=== PATIENT | male | born 1950 | race Caucasian/White ===

== ENCOUNTER 2020-11-21 08:31 | Outpatient (REF) | payer OTHER, SELFPAY ==
[2020-11-21 11:41] LABS: TSH reflex Free T4 3.73 uIU/mL (0.32-4.0)
[2020-11-21 11:43] LABS: Alanine Aminotransferase 10 U/L (0-40); Albumin Level 4.3 g/dL (3.5-5.0); Alkaline Phosphatase 50 U/L (39-117); Anion Gap 12 (12-20); Aspartate Amino Transferase 14 U/L (5-37); Bilirubin Total 1.3 mg/dL (0.0-1.0); Blood Urea Nitrogen 11 mg/dL (9-16); Calcium 9.1 mg/dL (8.4-10.2); Carbon Dioxide 26 mmol/L (22-29); Chloride 105 mmol/L (96-108); Cholesterol 225 mg/dL; Estimated Glomerular Filt Rate > 60; Glucose Fasting 88 mg/dL (60-99); HDL Cholesterol 61 mg/dL; LDL Cholesterol Calculated 146 mg/dl; Potassium 3.9 mmol/L (3.3-5.1); Sodium 139 mmol/L (135-145); Total Protein 6.9 g/dL (6.5-8.0); Triglycerides 90 mg/dL
== END 2020-11-21 08:32 | disposition home or self-care (01) ==
LOC: HO.WFDLDS 08:31
PROVIDERS: Visit Provider Family Medicine
DX: Z00.00 Encounter for general adult medical examination without abnormal findings (principal)
CPT/HCPCS: 36415; 80053; 80061; 84443

== ENCOUNTER 2020-12-21 09:21 | Outpatient (REF) | payer OTHER, SELFPAY ==
[2020-12-21 11:20] LABS: Prostate Specific Antigen Scr 3.33 ng/mL (<0.05-4.0)
== END 2020-12-21 09:22 | disposition home or self-care (01) ==
LOC: HO.WFDLDS 09:21
PROVIDERS: Visit Provider Family Medicine
DX: Z12.5 Encounter for screening for malignant neoplasm of prostate (principal)
CPT/HCPCS: 36415; 84153

== ENCOUNTER 2021-06-27 09:48 | Outpatient (REF) | payer MEDICARE, SELFPAY ==
[2021-06-27 11:16] LABS: MANUAL DIFF FLAG NO
[2021-06-27 11:35] LABS: Appearance Urine CLEAR; Color Urine YELLOW; D Dimer High Sensitivity 866 NG/ML; Glucose Urine UA NEG (NEG); Leukocyte Esterase Urine NEG (NEG); Nitrite Urine NEG (NEG); Specific Gravity - Urine 1.015 (1.005-1.025); Urine Blood NEG (NEG); Urine Ketones NEG (NEG); Urine Protein NEG (NEG-TRACE)
[2021-06-27 12:01] LABS: Basophils Percent Auto 0.8 % (0-2); Eosinophils Absolute Auto 0.1 X10*3/uL (0.0-0.4); Eosinophils Percent Auto 1.4 % (0-4); Hematocrit 38.4 % (42.0-52.0); Hemoglobin 12.4 g/dl (14.0-18.0); Imm Gran Abs Auto 0.01 X10*3/uL (0.00-0.03); Imm Gran Pct Auto 0.2 % (0.0-0.4); Lymphocytes Percent Auto 20.5 % (20-40); Mean Corpuscular HGB Conc 32.3 g/dl (31.0-36.0); Mean Corpuscular Hemoglobin 30.1 pg (27.0-33.0); Mean Corpuscular Volume 93.2 fL (80.0-98.0); Monocytes Absolute Auto 0.4 X10*3/uL (0.1-1.2); Monocytes Percent Auto 8.2 % (2-11); Neutrophils Absolute Auto 3.4 x10*3/uL (2.0-8.3); Neutrophils Percent Auto 68.9 % (45-73); Platelet Count 259 X10*3/uL (160-400); Red Blood Count 4.12 X10*6/uL (4.60-5.80); Red Cell Distribution Width 13.6 % (11.0-16.0)
[2021-06-27 12:04] LABS: Alanine Aminotransferase 13 U/L (0-40); Alkaline Phosphatase 64 U/L (39-117); Anion Gap 11 (12-20); Aspartate Amino Transferase 16 U/L (5-37); Blood Urea Nitrogen 14 mg/dL (9-16); Calcium 8.9 mg/dL (8.4-10.2); Carbon Dioxide 25 mmol/L (22-29); Chloride 104 mmol/L (96-108); Estimated Glomerular Filt Rate > 60; Glucose Random 82 mg/dL (60-115); Potassium 4.4 mmol/L (3.3-5.1); Sodium 136 mmol/L (135-145); Total Protein 7.1 g/dL (6.5-8.0)
[2021-06-27 12:27] LABS: Folate 3.6 ng/mL (> or = 4.0); Vitamin B12 246 pg/mL (200-900)
[2021-06-27 12:40] LABS: Erythrocyte Sedimentation Rate 39 MM/HR (0-15)
== END 2021-06-27 09:49 | disposition home or self-care (01) ==
LOC: HO.WFDLDS 09:48
PROVIDERS: Visit Provider Family Medicine
DX: Z00.00 Encounter for general adult medical examination without abnormal findings (principal); M21.372 Foot drop, left foot; R20.2 Paresthesia of skin; E53.8 Deficiency of other specified B group vitamins; M79.662 Pain in left lower leg; R29.898 Other symptoms and signs involving the musculoskeletal system
CPT/HCPCS: 36415; 80053; 81003; 82607; 82746; 85025; 85379; 85652

== ENCOUNTER 2021-07-04 14:13 | Outpatient (REF) | payer MEDICARE, SELFPAY ==
--- NOTE | ~2021-07-04 | XR_ITS ---
EXAMINATION: XR FOOT, LEFT CLINICAL INFORMATION: Localized pain and swelling COMPARISON: None TECHNIQUE: AP, lateral, and oblique views of the left foot. FINDINGS: There are degenerative osteoarthritic changes involving primarily the first metatarsophalangeal joint. No bone erosions. Bone alignments remain satisfactory. There is a small posterior calcaneal spurs. 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
--- NOTE | ~2021-07-04 | US_ITS ---
EXAMINATION: US VENOUS ULTRASOUND WITH DOPPLER LOWER EXTREMITY, LEFT CLINICAL INFORMATION: Pain left lower leg COMPARISON: None TECHNIQUE: Ultrasound of the deep veins is performed from the hip to the calf with compression sonography and color and pulse Doppler assessment. Spectral analysis with color-flow imaging is performed. FINDINGS: There is normal venous compression and respiratory variation and augmented flow. The visualized common femoral vein, superficial femoral vein, profunda femoral vein, popliteal vein, and the trifurcation region shows no evidence of deep venous thrombosis. There is no significant popliteal fossa cyst. If the patient's symptoms persist, followup ultrasound in 5 days 7 days might be of value to exclude proximal propagation from a non-visualized calf vein. US/US venous duplex LE LT IMPRESSION: No DVT demonstrated in the left lower extremity.
== END 2021-07-04 14:14 | disposition home or self-care (01) ==
LOC: HO.US 14:13
PROVIDERS: PCP Family Medicine; Visit Provider Family Medicine
DX: M79.662 Pain in left lower leg (principal); R79.89 Other specified abnormal findings of blood chemistry; R22.42 Localized swelling, mass and lump, left lower limb
CPT/HCPCS: 73620; 93971

== ENCOUNTER 2021-12-25 08:35 | Outpatient (REF) | payer MEDICARE, SELFPAY ==
[2021-12-25 11:19] LABS: Basophils Percent Auto 0.6 % (0-2); Eosinophils Absolute Auto 0.1 X10*3/uL (0.0-0.4); Eosinophils Percent Auto 1.1 % (0-4); Hematocrit 38.1 % (42.0-52.0); Hemoglobin 12.4 g/dl (14.0-18.0); Imm Gran Abs Auto 0.02 X10*3/uL (0.00-0.03); Imm Gran Pct Auto 0.4 % (0.0-0.4); Lymphocytes Absolute Auto 1.2 X10*3/uL (1.2-4.9); Lymphocytes Percent Auto 24.8 % (20-40); MANUAL DIFF FLAG NO; Mean Corpuscular HGB Conc 32.5 g/dl (31.0-36.0); Mean Corpuscular Hemoglobin 30.2 pg (27.0-33.0); Mean Corpuscular Volume 92.9 fL (80.0-98.0); Mean Platelet Volume 9.4 fL (9.4-12.4); Monocytes Absolute Auto 0.3 X10*3/uL (0.1-1.2); Monocytes Percent Auto 6.4 % (2-11); Neutrophils Absolute Auto 3.1 x10*3/uL (2.0-8.3); Neutrophils Percent Auto 66.7 % (45-73); Platelet Count 238 X10*3/uL (160-400); Red Cell Distribution Width 13.8 % (11.0-16.0); White Blood Count 4.7 X10*3/uL (4.8-10.8)
[2021-12-25 11:37] LABS: Alanine Aminotransferase 12 U/L (0-40); Albumin Level 4.4 g/dL (3.5-5.0); Alkaline Phosphatase 49 U/L (39-117); Anion Gap 15 (12-20); Aspartate Amino Transferase 16 U/L (5-37); Bilirubin Total 1.6 mg/dL (0.0-1.0); Blood Urea Nitrogen 13 mg/dL (9-16); Calcium 9.1 mg/dL (8.4-10.2); Carbon Dioxide 25 mmol/L (22-29); Chloride 101 mmol/L (96-108); Cholesterol 235 mg/dL; Estimated Glomerular Filt Rate > 60; Glucose Fasting 88 mg/dL (60-99); HDL Cholesterol 75 mg/dL; LDL Cholesterol Calculated 145 mg/dl; Potassium 4.3 mmol/L (3.3-5.1); Sodium 137 mmol/L (135-145); Total Protein 6.9 g/dL (6.5-8.0); Triglycerides 79 mg/dL
[2021-12-25 12:03] LABS: TSH reflex Free T4 2.04 uIU/mL (0.32-4.0)
[2021-12-25 12:32] LABS: Folate 5.3 ng/mL (> or = 4.0); Vitamin B12 268 pg/mL (200-900)
[2021-12-25 12:37] LABS: Prostate Specific Antigen Scr 4.44 ng/mL (<0.05-4.0)
== END 2021-12-25 08:36 | disposition home or self-care (01) ==
LOC: HO.WFDLDS 08:35
PROVIDERS: Visit Provider Family Medicine
DX: Z00.00 Encounter for general adult medical examination without abnormal findings (principal); Z12.5 Encounter for screening for malignant neoplasm of prostate; E53.8 Deficiency of other specified B group vitamins
CPT/HCPCS: 36415; 80053; 80061; 82607; 82746; 84153; 84443; 85025

== ENCOUNTER 2022-01-10 10:02 | Outpatient (REF) | payer MEDICARE, SELFPAY ==
--- NOTE | ~2022-01-10 | US_ITS ---
EXAMINATION: US EXTRACRANIAL CAROTID DUPLEX, BILATERAL CLINICAL INFORMATION: Bruit COMPARISON: None TECHNIQUE: Real-time ultrasound and Doppler techniques (integrating B-mode 2-D vascular images, Doppler spectral analysis and color-flow Doppler imaging) were utilized to interrogate the extracranial carotid arteries, the vertebral arteries and proximal subclavian arteries bilaterally. The degree of stenosis is determined by criteria similar to NASCET. FINDINGS: Right Side: 1. There is mild atherosclerotic plaque seen in the bifurcation/proximal ICA region. 2. The common carotid artery PSV proximally is 94 cm/s and distally 99 cm/s. 3. The proximal internal carotid artery velocities are 63 cm/s systolic and 15 cm/s diastolic. 4. The proximal external carotid artery PSV is 99 cm/s. 5. The vertebral artery shows antegrade flow. 6. The subclavian artery waveforms are normal. Left Side: 1. There is mild atherosclerotic plaque seen in the bifurcation/proximal ICA region. 2. The common carotid artery PSV proximally is 103 cm/s and distally 99 cm/s. 3. The proximal internal carotid artery velocities are 63 cm/s systolic and 24 cm/s diastolic. 4. The proximal external carotid artery PSV is 105 cm/s. 5. The vertebral artery shows antegrade flow. 6. The subclavian artery waveforms are normal. US/US carotid duplex BI IMPRESSION: 1. RIGHT: Minimal, non-hemodynamically significant stenosis of the proximal right internal carotid artery corresponding to a 0-49% stenosis by velocity criteria. 2. LEFT: Minimal, non-hemodynamically significant stenosis of the proximal left internal carotid artery corresponding to a 0-49% stenosis by velocity criteria.
== END 2022-01-10 10:03 | disposition home or self-care (01) ==
LOC: HO.HMGCX 10:02
PROVIDERS: PCP Family Medicine; Visit Provider Family Medicine
DX: R09.89 Other specified symptoms and signs involving the circulatory and respiratory systems (principal)
CPT/HCPCS: 93880

== ENCOUNTER → 2022-03-14 13:29 | Outpatient (BNV) | payer MEDICARE, SELFPAY | PROVIDERS: PCP Family Medicine; Referring Provider Family Medicine; Visit Provider Internal Medicine | DX: D64.9 Anemia, unspecified (principal) | CPT/HCPCS: 99203; 99213 ==

== ENCOUNTER 2022-05-22 07:51 | Outpatient (REF) | payer MEDICARE, SELFPAY ==
[2022-05-22 12:18] LABS: Cholesterol 240 mg/dL; HDL Cholesterol 68 mg/dL; LDL Cholesterol Calculated 156 mg/dl; Triglycerides 81 mg/dL
== END 2022-05-22 07:52 | disposition home or self-care (01) ==
LOC: HO.WFDLDS 07:51
PROVIDERS: Visit Provider Family Medicine
DX: Z00.00 Encounter for general adult medical examination without abnormal findings (principal); E78.00 Pure hypercholesterolemia, unspecified
CPT/HCPCS: 36415; 80061

== ENCOUNTER → 2022-05-29 08:41 | Outpatient (BNVA) | payer MEDICARE, SELFPAY | PROVIDERS: PCP Family Medicine; Visit Provider Nurse Practitioner Family | DX: N40.0 Benign prostatic hyperplasia without lower urinary tract symptoms (principal); R97.20 Elevated prostate specific antigen [PSA] | CPT/HCPCS: 99202 ==

== ENCOUNTER 2022-06-09 08:01 | Outpatient (REF) | payer MEDICARE, SELFPAY ==
[2022-06-09 12:55] LABS: PSA,Total (Free>4and<10) 4.59 ng/mL (0.00-4.00)
[2022-06-12 11:54] LABS: Percent Free Prostate Spec Ag 19 % (calc) (>25); Prostate Specific Ag Total 5.2 ng/mL (< OR = 4.0)
== END 2022-06-09 08:02 | disposition home or self-care (01) ==
LOC: HO.WFDLDS 08:01
PROVIDERS: Visit Provider Nurse Practitioner Family
DX: Z12.5 Encounter for screening for malignant neoplasm of prostate (principal); N40.0 Benign prostatic hyperplasia without lower urinary tract symptoms; R97.20 Elevated prostate specific antigen [PSA]
CPT/HCPCS: 36415; 84153; 84154

== ENCOUNTER 2022-06-30 14:09 | Outpatient (REF) | payer MEDICARE, SELFPAY ==
--- NOTE | ~2022-06-30 | US_ITS ---
EXAMINATION: US RETROPERITONEAL COMPLETE (RENAL) CLINICAL INFORMATION: Benign prostatic hyperplasia without lower urinary tract symptoms. COMPARISON: None available. TECHNIQUE: Real-time imaging of the kidneys and bladder. FINDINGS: RIGHT KIDNEY: 11.7 x 4.9 x 6.3 cm (SAG x AP x TRV). The kidney is normal in size, contour, and echogenicity. Renal cortical thickness is normal. No calculi or focal parenchymal lesions. No hydronephrosis. LEFT KIDNEY: 10.6 x 5.5 x 6.2 cm (SAG x AP x TRV). The kidney is normal in size, contour, and echogenicity. Renal cortical thickness is normal. No calculi or focal parenchymal lesions. No hydronephrosis. BLADDER: Well distended and normal. Bilateral ureteral jets are demonstrated. Prevoid bladder volume is 447 mL. Postvoid bladder volume is 113 mL. No bladder wall thickening seen. ADDITIONAL FINDINGS: Prostate volume measures 67 mL. US/US retroperitoneal comp IMPRESSION: 1. Unremarkable renal ultrasound. 2. Moderate postvoid residual bladder volume. Normal bilateral ureteral jets seen. 3. Moderate prostate enlargement.
== END 2022-06-30 14:10 | disposition home or self-care (01) ==
LOC: HO.HMGCX 14:09
PROVIDERS: PCP Family Medicine; Visit Provider Nurse Practitioner Family
DX: N40.0 Benign prostatic hyperplasia without lower urinary tract symptoms (principal); R97.20 Elevated prostate specific antigen [PSA]
CPT/HCPCS: 76770

== ENCOUNTER → 2022-07-02 09:36 | Outpatient (BNVA) | payer MEDICARE, SELFPAY | PROVIDERS: PCP Family Medicine; Visit Provider Nurse Practitioner Family | DX: R97.20 Elevated prostate specific antigen [PSA] (principal) | CPT/HCPCS: 51798; 99212 ==

== ENCOUNTER 2022-08-25 08:09 | Outpatient (REF) | payer MEDICARE, SELFPAY ==
[2022-08-25 11:17] LABS: MANUAL DIFF FLAG NO
[2022-08-25 11:29] LABS: Basophils Percent Auto 0.6 % (0-2); Eosinophils Absolute Auto 0.1 X10*3/uL (0.0-0.4); Eosinophils Percent Auto 2.1 % (0-4); Hematocrit 40.3 % (42.0-52.0); Hemoglobin 13.3 g/dl (14.0-18.0); Imm Gran Abs Auto 0.02 X10*3/uL (0.00-0.03); Imm Gran Pct Auto 0.4 % (0.0-0.4); Lymphocytes Absolute Auto 1.2 X10*3/uL (1.2-4.9); Lymphocytes Percent Auto 24.7 % (20-40); Mean Corpuscular Hemoglobin 30.6 pg (27.0-33.0); Mean Corpuscular Volume 92.9 fL (80.0-98.0); Mean Platelet Volume 9.3 fL (9.4-12.4); Monocytes Absolute Auto 0.3 X10*3/uL (0.1-1.2); Monocytes Percent Auto 6.7 % (2-11); Neutrophils Absolute Auto 3.1 x10*3/uL (2.0-8.3); Neutrophils Percent Auto 65.5 % (45-73); Platelet Count 217 X10*3/uL (160-400); Red Blood Count 4.34 X10*6/uL (4.60-5.80); Red Cell Distribution Width 12.8 % (11.0-16.0); White Blood Count 4.8 X10*3/uL (4.8-10.8)
[2022-08-25 12:08] LABS: Alanine Aminotransferase 17 U/L (0-40); Albumin Level 4.2 g/dL (3.5-5.0); Alkaline Phosphatase 60 U/L (39-117); Anion Gap 10 (12-20); Aspartate Amino Transferase 17 U/L (5-37); Blood Urea Nitrogen 14 mg/dL (9-16); Calcium 8.9 mg/dL (8.4-10.2); Carbon Dioxide 28 mmol/L (22-29); Chloride 108 mmol/L (96-108); Cholesterol 170 mg/dL; Estimated Glomerular Filt Rate > 60; Glucose Fasting 93 mg/dL (60-99); HDL Cholesterol 64 mg/dL; LDL Cholesterol Calculated 90 mg/dl; Potassium 4.1 mmol/L (3.3-5.1); Sodium 142 mmol/L (135-145); Total Protein 6.9 g/dL (6.5-8.0); Triglycerides 81 mg/dL
== END 2022-08-25 08:10 | disposition home or self-care (01) ==
LOC: HO.WFDLDS 08:09
PROVIDERS: Visit Provider Family Medicine
DX: Z00.00 Encounter for general adult medical examination without abnormal findings (principal); E78.00 Pure hypercholesterolemia, unspecified; D64.9 Anemia, unspecified
CPT/HCPCS: 36415; 80053; 80061; 85025

== ENCOUNTER 2023-02-26 07:15 | Outpatient (REF) | payer MEDICARE, SELFPAY ==
[2023-02-26 11:16] LABS: MANUAL DIFF FLAG NO
[2023-02-26 11:37] LABS: Basophils Percent Auto 0.6 % (0-2); Eosinophils Absolute Auto 0.1 X10*3/uL (0.0-0.4); Eosinophils Percent Auto 2.1 % (0-4); Imm Gran Abs Auto 0.01 X10*3/uL (0.00-0.03); Imm Gran Pct Auto 0.2 % (0.0-0.4); Lymphocytes Absolute Auto 1.3 X10*3/uL (1.2-4.9); Lymphocytes Percent Auto 27.2 % (20-40); Mean Corpuscular HGB Conc 33.3 g/dl (31.0-36.0); Mean Corpuscular Hemoglobin 30.5 pg (27.0-33.0); Mean Corpuscular Volume 91.5 fL (80.0-98.0); Mean Platelet Volume 9.5 fL (9.4-12.4); Monocytes Absolute Auto 0.4 X10*3/uL (0.1-1.2); Monocytes Percent Auto 7.3 % (2-11); Neutrophils Percent Auto 62.6 % (45-73); Platelet Count 204 X10*3/uL (160-400); Red Blood Count 4.26 X10*6/uL (4.60-5.80); Red Cell Distribution Width 13.2 % (11.0-16.0); White Blood Count 4.8 X10*3/uL (4.8-10.8)
[2023-02-26 12:32] LABS: Alanine Aminotransferase 15 U/L (0-40); Albumin Level 4.3 g/dL (3.5-5.0); Alkaline Phosphatase 51 U/L (39-117); Anion Gap 10 (12-20); Aspartate Amino Transferase 16 U/L (5-37); Bilirubin Total 1.7 mg/dL (0.0-1.0); Blood Urea Nitrogen 16 mg/dL (9-16); Calcium 8.9 mg/dL (8.4-10.2); Carbon Dioxide 28 mmol/L (22-29); Chloride 106 mmol/L (96-108); Cholesterol 170 mg/dL (<200); Estimated Glomerular Filt Rate > 60; Glucose Fasting 87 mg/dL (60-99); HDL Cholesterol 74 mg/dL (>40); Iron 115 mcg/dL (45-160); LDL Cholesterol Calculated 82 mg/dL (<100); Percent Iron Saturation 44 % (15-50); Potassium 3.8 mmol/L (3.3-5.1); Sodium 140 mmol/L (135-145); TSH reflex Free T4 4.62 uIU/mL (0.32-4.0); Total Iron Binding Capacity 264 mcg/dL (228-428); Total Protein 7.1 g/dL (6.5-8.0); Triglycerides 70 mg/dL (<150); Unsaturated Iron Binding 149 ug/dL
[2023-02-26 12:38] LABS: Folate 5.6 ng/mL (> or = 4.0); Prostate Specific Antigen Scr 3.57 ng/mL (<0.05-4.0); Vitamin B12 665 pg/mL (200-900)
[2023-02-26 13:07] LABS: Free T4 (Free Thyroxine) 0.86 ng/dL (0.71-1.85)
== END 2023-02-26 07:16 | disposition home or self-care (01) ==
LOC: HO.WFDLDS 07:15
PROVIDERS: Visit Provider Family Medicine
DX: Z00.00 Encounter for general adult medical examination without abnormal findings (principal); E53.8 Deficiency of other specified B group vitamins; D64.9 Anemia, unspecified; Z12.5 Encounter for screening for malignant neoplasm of prostate
CPT/HCPCS: 36415; 80053; 80061; 82607; 82746; 83540; 84153; 84439; 84443; 85025

== ENCOUNTER 2023-02-27 08:32 | Outpatient (REF) | payer MEDICARE, SELFPAY ==
[2023-02-27 12:14] LABS: Appearance Urine Clear; Color Urine Yellow; Glucose Urine UA Negative (Negative); Leukocyte Esterase Urine Negative (Negative); Nitrite Urine Negative (Negative); PH 6.5 (5.0-9.0); Urine Blood Negative (Negative); Urine Ketones Negative (Negative); Urine Protein Negative (Neg-Trace)
[2023-02-27 12:53] LABS: Creatinine Urine 115.35 mg/dL; Microalbum/Creatinine Ratio Ur 4.3 ug/mg cr (<30)
== END 2023-02-27 08:33 | disposition home or self-care (01) ==
LOC: HO.WFDLNP 08:32
PROVIDERS: Visit Provider Family Medicine
DX: Z00.00 Encounter for general adult medical examination without abnormal findings (principal); I10 Essential (primary) hypertension
CPT/HCPCS: 81003; 82043; 82570

== ENCOUNTER 2023-03-03 15:53 | Outpatient (AMB) | payer MEDICARE, SELFPAY ==
--- NOTE | 2023-03-03 16:14 | A.OFFPC_ITS ---
Vital Signs 03/03/23 16:16 Height 5 ft 9 in Weight 171 lb BMI 25.2 BP 134/74 Blood Pressure Location Lt brachial Position Sitting Pulse 68 Pulse Source Pulse Oximeter Pulse Oximetry (%) 95 Oxygen Delivery Method Room Air Intake Visit Reasons: Extended exam with f/u labs and health maintenance Intake Note: Patient is here for extended exam with follow up on labs, and health maintenance. Allergies Influenza Virus Vaccines Adverse Reaction (Severe, Verified 03/03/23 16:17) serious flu over a week Uncooked dairy products Allergy (Severe, Uncoded 03/03/23 16:17) esophagus swollen, stop breathing Tobacco use date assessed: 03/03/23 Fall risk assessment: No Falls in past year Last assessed Fall Risk: 03/03/23 Dental Screening Dental Screen Date: 03/03/23 Did you have a dental visit in the last 12 months?: Yes Did you have a dental problem in the last 6 months where you did not have access to dental care?: No Was dental information given to patient?: Patient declined HPI Extended exam with f/u labs and health maintenance HPI Details 72 y/o male presents for an extended exa m with f/u labs and health maintenance. Labs were drawn 02/26/23. Reviewed labs with pt. Ongoing mild anemia. Triglycerides 70. TC 170. LDL 82. HDL 74. He is on artovastatin 20mg. TSH elevated at 4.62 uIU/mL. Pt reports leg cramps x2 weeks. [facility] Medical History History of cataract Surgical History History of colonoscopy History of tonsillectomy History of hernia surgery Family History Father Esophageal cancer Brother Colon cancer Small cell lung cancer Brother Colon cancer Paternal Grandmother Leukemia Maternal Grandmother Cervical cancer Son Testicular cancer Social History Household Members: Spouse Housing: House Are you a primary occasional caregiver to a significant other at home: No Do you presently have visiting nurse or other home services: No Alcohol intake: never Patient Tobacco Use Status: Never used Tobacco e-Cigarette/Vaping Use: Never Used Second Hand Smoke Exposure: No service: Yes Current occupational status: retired Current occupational exposures/hazards: No Cognitive needs: No Hearing needs: No Vision needs: Yes (glasses) Questionnaire Thrive Questionnaire Date Thrive assessed: 03/05/22 ADEN-7 AMB Questionnaire ADEN-7 Date ADEN - 7 assessed: 09/04/21 Source: Developed by Drs. Gustavo Nieves, Ronda Bolanos, Niels Gomez and colleagues, with an educational tigre from [employer]. Review of Systems Const Denies chills, Denies fatigue, Denies fever(s), Denies headache(s) and Denies weakness Eyes Denies change in vision ENT Denies dizziness, Denies headache(s), Denies hearing loss, Denies nasal congestion, Denies sinus pain, Denies sinus pressure and Denies sore throat Card Denies chest pain, Denies lightheadedness, Denies dyspnea and Denies other (palpitations) Resp Denies cough, Denies dyspnea and Denies wheezing GI Denies abdominal pain, Denies melena, Denies hematochezia, Denies change in bowel habits, Denies dyspepsia and Denies nausea Denies hematuria and Denies dysuria Musc Denies abnormal gait, Denies myalgias, Denies arthralgias, Denies numbness and Denies tingling Skin/Breast Denies rash, Denies unusual bruising and Denies wounds Neuro Denies abnormal gait, Denies dizziness, Denies headache(s), Denies memory loss, Denies numbness, Denies Sensory deficit (Neuro), Denies tingling and Denies weakness Psych Denies anxiety, Denies depression and Denies memory loss Endo Denies cold intolerance, Denies fatigue, Denies heat intolerance, Denies polydipsia and Denies polyuria Aram/Lymph Denies easy bleeding and Denies easy bruising Aller/Immun Denies wheezing Physical exam (Primary Care) Vital Signs: Last Vital Signs Pulse 68 03/03/23 16:16 BP 134/74 03/03/23 16:16 Pulse Ox 95 03/03/23 16:16 Oxygen Delivery Method Room Air 03/03/23 16:16 BMI result Body Mass Index 25.2 Tobacco/Smoking Status: Tobacco use Status Tobacco use date assessed 03/03/23 03/03/23 16:24 Patient Tobacco Use Status Never used Tobacco 03/03/23 16:24 e-Cigarette/Vaping Use Never Used 03/03/23 16:24 Thrive Assessment: Date of Thrive Assessment Date Thrive assessed 03/05/22 03/03/23 16:24 Const General: no acute distress, well developed, alert and awake Nutritional Appearance: well nourished Orientation/consciousness: patient oriented x3 HENMT Head: Yes normocephalic and Yes atraumatic Ears: hearing grossly normal bilaterally and TM's normal bilaterally General nose exam: Normal external nose present and Normal nares present Mouth: Normal oral and palatal mucosa present and moist mucous membranes Teeth and gingiva: dentition normal Throat: Yes posterior oropharynx normal Eyes General: appearance normal, both eyes and all related structures Pupils: Equal, round and reactive pupils present and Pupil accommodation reflex normal EOM: EOMs intact bilaterally Neck Neck: Yes normal visual inspection, Yes no lymphadenopathy and Yes trachea midline Thyroid: Thyroid normal Carotids: no bruits Lymphatic: no lymphadenopathy noted Chest Chest palpation & inspection: normal inspection of the chest Resp Effort & Inspection: normal respiratory effort Auscultation: clear to auscultation bilaterally Cardio Rate: regular rate Rhythm: regular rhythm Heart sounds: S1 normal heart sound present, S2 normal heart sound present, no gallops, no murmurs and no rubs Bruits: no abdominal aortic bruits and no carotid bruits GI Palpation (GI): No Abdominal aortic bruit present, Soft to palpation, nontender, No hepatosplenomegaly present and No Rebound tenderness present Auscultation: normal bowel sounds General: Yes no CVA tenderness Back/Spine/Pelvis Back: no CVA tenderness Cervical Spine: cervical ROM normal and No Cervical spine tenderness Thoracic/Lumbar Spine: thoraco-lumbar ROM normal, No pain with thoraco-lumbar ROM, No thoracic spinal tenderness and No lumbar spinal tenderness Skin Lesions: no lesions Rashes: no rashes Trauma: no lacerations or abrasions Wounds: no wounds Nails: normal Neuro General: patient oriented x3 Cranial nerves: Yes Equal, round and reactive pupils present Cognition (Neuro): normal cognition Gait exam (Neuro): Normal gait present Motor exam (neuro): 5/5 motor strength present throughout Sensory Exam: No Sensory deficit (Neuro) Deep tendon reflexes (DTR's): Right patellar reflex intensity grade: 2+ and Left patellar reflex intensity grade: 2+ Extrem General: Yes normal to inspection and No edema Psych Appearance: grossly normal Affect: normal affect Attitude: cooperative Thought process: Normal thought process present Assessment and Plan Assessment & Plan (1) Hypercholesterolemia: Code(s): E78.00 - Pure hypercholesterolemia, unspecified Plan: LDL?cholesterol?slightly?above?goal Continue?atorvastatin Will?follow-up?in?about?4?months (2) History of aortic aneurysm: Code(s): Z86.79 - Personal history of other diseases of the circulatory system Plan: Stable Follow-up?with?Cardiology?as?recommended (3) Mild anemia: Code(s): D64.9 - Anemia, unspecified Plan: Mild?stable?anemia?and?B12?deficiency.??He?is?now?on?B12?and?his?B12?level?is?go od (4) Screening for prostate cancer: Code(s): Z12.5 - Encounter for screening for malignant neoplasm of prostate Plan: Followed?by?urology (5) Screening for colon cancer: Code(s): Z12.11 - Encounter for screening for malignant neoplasm of colon Plan: Due?for?colonoscopy?in?2023?with??lui -referred (6) Leg cramps: Code(s): R25.2 - Cramp and spasm Plan: Advised?good?hydration?and?stretching (7) Elevated TSH: Code(s): R79.89 - Other specified abnormal findings of blood chemistry Plan: Mild?elevation?in?TSH.??Will?repeat?in?about?6?weeks (8) Adult general medical exam: Code(s): Z00.00 - Encounter for general adult medical examination without abnormal findings Plan: 72-year-old?male?presents?for?extended?exam. Coding Level of Care Code Est Pt Level 4 (52527) Diagnoses Hypercholesterolemia E78.00 History of aortic aneurysm Z86.79 Mild anemia D64.9 Screening for prostate cancer Z12.5 Screening for colon cancer Z12.11 Leg cramps R25.2 Elevated TSH R79.89 Adult general medical exam Z00.00
[2023-03-03 16:16] VITALS: BP 134/74; PULSE 68; O2SAT 95; BMI 25.2
== END 2023-03-03 17:05 | disposition home or self-care (01) ==
PROVIDERS: PCP Family Medicine; Visit Provider Family Medicine
DX: Z00.00 Encounter for general adult medical examination without abnormal findings (principal); E78.00 Pure hypercholesterolemia, unspecified; Z86.79 Personal history of other diseases of the circulatory system; D64.9 Anemia, unspecified; Z12.5 Encounter for screening for malignant neoplasm of prostate; Z12.11 Encounter for screening for malignant neoplasm of colon; R25.2 Cramp and spasm; R79.89 Other specified abnormal findings of blood chemistry
CPT/HCPCS: 99397

== ENCOUNTER 2023-03-27 08:36 | Outpatient (REF) | payer MEDICARE, SELFPAY | END 2023-03-27 08:37 | disposition home or self-care (01) | LOC: HO.WFDLDS 08:36 | PROVIDERS: Visit Provider Family Medicine | DX: Z00.00 Encounter for general adult medical examination without abnormal findings (principal); E03.9 Hypothyroidism, unspecified | CPT/HCPCS: 36415; 80048; 84439; 84443; 84480 ==

== ENCOUNTER 2023-04-17 16:03 | Outpatient (AMB) | payer MEDICARE, SELFPAY ==
--- NOTE | 2023-04-17 15:56 | A.OFFPC_ITS ---
Intake Visit Reasons: f/u elevated tsh Intake Note: Patient is following up on thyroid blood work today. Allergies Influenza Virus Vaccines Adverse Reaction (Severe, Verified 04/17/23 15:57) serious flu over a week Uncooked dairy products Allergy (Severe, Uncoded 04/17/23 15:57) esophagus swollen, stop breathing Tobacco use date assessed: 04/17/23 Fall risk assessment: No Falls in past year Last assessed Fall Risk: 04/17/23 Dental Screening Dental Screen Date: 04/17/23 Did you have a dental visit in the last 12 months?: No Did you have a dental problem in the last 6 months where you did not have access to dental care?: No Was dental information given to patient?: Patient declined HPI f/u elevated tsh HPI Details Patient's?TSH?was?slightly?above?range?at?his?last?lab?draw He?does?not?have?a?history?of?hypothyroidism?and?is?not?on?medication?for?his?th yroid Repeat?labs?are?all?back?within?normal?range. [facility] Medical History History of cataract Surgical History History of colonoscopy History of tonsillectomy History of hernia surgery Family History Father Esophageal cancer Brother Colon cancer Small cell lung cancer Brother Colon cancer Paternal Grandmother Leukemia Maternal Grandmother Cervical cancer Son Testicular cancer Social History Household Members: Spouse Housing: House Are you a primary care transition coordinator to a significant other at home: No Do you presently have visiting nurse or other home services: No Alcohol intake: never Patient Tobacco Use Status: Never used Tobacco e-Cigarette/Vaping Use: Never Used Second Hand Smoke Exposure: No service: Yes Current occupational status: retired Current occupational exposures/hazards: No Cognitive needs: No Hearing needs: No Vision needs: Yes (glasses) Questionnaire PHQ-9 Over the last 2 weeks, how often have you been bothered by any of the following problems? 1. Little interest or pleasure in doing things: not at all 2. Feeling down, depressed, or hopeless: not at all 3. Trouble falling or staying asleep, or sleeping too much: not at all 4. Feeling tired or having little energy: not at all 5. Poor appetite or overeating: not at all 6. Feeling bad about yourself - or that you are a failure or have let yourself or your family down: not at all 7. Trouble concentrating on things, such as reading the newspaper or watching television: not at all 8. Moving or speaking so slowly that other people could have noticed. Or the opposite - being so fidgety or restless that you have been moving around a lot more than usual: not at all 9. Thoughts that you would be better off or of hurting yourself in some way: not at all Total score: 0 Source: Developed by Drs. Gustavo Nieves, Ronda Bolanos, Niels Gomez and colleagues, with an educational tigre from [employer]. Thrive Questionnaire Date Thrive assessed: 04/17/23 I am a: Patient What is your living situation today?: I have a steady place to live Within the past 12 months, did the food you bought not last and you didn't have the money to get more?: Never true Within the past 12 months, did you worry whether your food would run out before you got money to buy more?: Never true Do you have trouble paying for medicines?: No Do you have trouble getting transportation to medical appointments?: No Do you have trouble paying your heating and electricity bill?: No Do you have trouble taking care of your child, family member or friend?: No Do you have trouble with day-to-day activities such as bathing, preparing meals, shopping, managing finances, etc.?: No Are you currently unemployed and looking for a job?: No Are you interested in more education?: No THRIVE Score: 0 AUDIT C Alcohol Use Questionnaire (AUDIT-C) 1. How often do you have a drink containing alcohol?: Never 3. How often do you have six or more drinks on one occasion?: Never Total Score: 0 ADEN-7 AMB Questionnaire ADEN-7 Date ADEN - 7 assessed: 04/17/23 Feeling nervous, anxious, or on edge: 0 = Not at all Not being able to stop or control worryin = Not at all Worrying too much about different things: 0 = Not at all Trouble relaxin = Not at all Being so restless that it is hard to sit still: 0 = Not at all Becoming easily annoyed or irritable: 0 = Not at all Feeling afraid as if something awful might happen: 0 = Not at all Total ADEN-7 score (0-4 normal; 5-9 mild; 10-14 moderate; 15-21 severe): 0 Source: Developed by Drs. Gustavo Nieves, Ronda Bolanos, Niels Gomez and colleagues, with an educational tigre from [employer]. Review of Systems Const Denies chills, Denies fatigue, Denies fever(s), Denies headache(s) and Denies weakness ENT Denies dizziness and Denies headache(s) Card Denies chest pain, Denies lightheadedness, Denies dyspnea and Denies other (Palpitations) Resp Denies cough, Denies dyspnea, Denies wheezing and Denies other ( shortness of breath) Musc Denies numbness and Denies tingling Neuro Denies dizziness, Denies headache(s), Denies numbness, Denies tingling, Denies paresthesias and Denies weakness Psych Denies anxiety and Denies depression Endo Denies fatigue Aller/Immun Denies wheezing Physical exam (Primary Care) Tobacco/Smoking Status: Tobacco use Status Tobacco use date assessed 04/17/23 04/17/23 15:58 Patient Tobacco Use Status Never used Tobacco 04/17/23 15:58 e-Cigarette/Vaping Use Never Used 04/17/23 15:58 PHQ-9: PHQ-9 Score PHQ-9: Total score 0 04/17/23 16:01 Thrive Assessment: Date of Thrive Assessment Date Thrive assessed 04/17/23 04/17/23 16:01 Telehealth Telehealth Location of provider rendering services: practice address Location of patient: address on file Patient Identification confirmed using: Name, : Yes Telehealth method: voice only Patient verbally consented to treatment: Yes Patient verbally consented to billing insurance company: Yes Patient informed of any privacy concerns related to visit: Yes Minutes spent on Phone/Video with Pt.: 6 Assessment and Plan Assessment & Plan (1) Elevated TSH: Code(s): R79.89 - Other specified abnormal findings of blood chemistry Plan: Repeat?thyroid?hormone?levels?are?all?back?within?normal?limits No?intervention?required (2) Hypercholesterolemia: Code(s): E78.00 - Pure hypercholesterolemia, unspecified Plan: Patient?is?tolerating?atorvastatin He?has?mild?carotid?artery?stenosis?and?goal?for?LDL?cholesterol?is?less?than?70 Will?recheck?his?lipids?prior?to?next?visit?in?June Orders: Orders Comprehensive [place]. Panel Fast Today E78.00 - Pure hypercholesterolemia, unspecified, Z00.00 - Encounter for general adult medical examination without abnormal findings Lipid Panel Today E78.00 - Pure hypercholesterolemia, unspecified, Z00.00 - Encounter for general adult medical examination without abnormal findings Coding Level of Care Code Tele Est Pt Level 2 (58757) Diagnoses Elevated TSH R79.89 Hypercholesterolemia E78.00
== END 2023-04-17 17:00 ==
LOC: HO.HMGFM 16:03
PROVIDERS: PCP Family Medicine; Visit Provider Family Medicine
DX: R79.89 Other specified abnormal findings of blood chemistry (principal); E78.00 Pure hypercholesterolemia, unspecified
CPT/HCPCS: 99441

== ENCOUNTER 2023-07-06 07:38 | Outpatient (REF) | payer MEDICARE, SELFPAY ==
[2023-07-06 12:05] LABS: Alanine Aminotransferase 17 U/L (0-40); Albumin Level 4.4 g/dL (3.5-5.0); Alkaline Phosphatase 53 U/L (39-117); Anion Gap 12 (12-20); Aspartate Amino Transferase 17 U/L (5-37); Bilirubin Total 1.8 mg/dL (0.0-1.0); Blood Urea Nitrogen 14 mg/dL (9-16); Calcium 9.2 mg/dL (8.4-10.2); Carbon Dioxide 26 mmol/L (22-29); Chloride 107 mmol/L (96-108); Cholesterol 165 mg/dL (<200); Estimated Glomerular Filt Rate > 60; Glucose Fasting 90 mg/dL (60-99); HDL Cholesterol 75 mg/dL (>40); LDL Cholesterol Calculated 76 mg/dL (<100); Sodium 141 mmol/L (135-145); Total Protein 7.2 g/dL (6.5-8.0); Triglycerides 71 mg/dL (<150)
== END 2023-07-06 07:39 | disposition home or self-care (01) ==
LOC: HO.WFDLDS 07:38
PROVIDERS: Visit Provider Family Medicine
DX: Z00.00 Encounter for general adult medical examination without abnormal findings (principal); E78.00 Pure hypercholesterolemia, unspecified
CPT/HCPCS: 36415; 80053; 80061

== ENCOUNTER 2023-07-14 14:14 | Outpatient (AMB) | payer MEDICARE, SELFPAY ==
[2023-07-14 14:24] VITALS: BP 128/72; PULSE 70; O2SAT 95; BMI 26.4
--- NOTE | 2023-07-14 14:24 | A.OFFPC_ITS ---
Vital Signs 07/14/23 14:24 Height 5 ft 9 in Weight 179 lb BMI 26.4 BP 128/72 Blood Pressure Location Lt brachial Position Sitting Pulse 70 Pulse Source Pulse Oximeter Pulse Oximetry (%) 95 Oxygen Delivery Method Room Air Intake Visit Reasons: f/u hypercholesterolemia Intake Note: Patient is here to follow up on hypercholesterolemia today. Allergies Influenza Virus Vaccines Adverse Reaction (Severe, Verified 07/14/23 14:25) serious flu over a week Uncooked dairy products Allergy (Severe, Uncoded 07/14/23 14:25) esophagus swollen, stop breathing Tobacco use date assessed: 07/14/23 Fall risk assessment: 1 Fall in past year Last assessed Fall Risk: 07/14/23 Dental Screening Dental Screen Date: 04/17/23 HPI f/u hypercholesterolemia HPI Details 73 y/o male presents to f/u lipids. Mild carotid artery stenosis and LDL goal is less than 70. He is on atorvastatin 20 mg daily Labs were drawn 07/06/23. Reviewed labs with pt. Triglycerides 71. TC 165. LDL 76. HDL 75. PFSH Medical History History of cataract Surgical History History of colonoscopy History of tonsillectomy History of hernia surgery Family History Father Esophageal cancer Brother Colon cancer Small cell lung cancer Brother Colon cancer Paternal Grandmother Leukemia Maternal Grandmother Cervical cancer Son Testicular cancer Social History Household Members: Spouse Housing: House Are you a primary wound care rn to a significant other at home: No Do you presently have visiting nurse or other home services: No Alcohol intake: never Patient Tobacco Use Status: Never used Tobacco e-Cigarette/Vaping Use: Never Used Second Hand Smoke Exposure: No service: Yes Current occupational status: retired Current occupational exposures/hazards: No Cognitive needs: No Hearing needs: No Vision needs: Yes (glasses) Questionnaire Thrive Questionnaire Date Thrive assessed: 04/17/23 ADEN-7 AMB Questionnaire ADEN-7 Date ADEN - 7 assessed: 04/17/23 Source: Developed by Drs. Gustavo L. Ronda Nieves, Niels Gomez and colleagues, with an educational tigre from [employer]. Review of Systems Const Denies chills, Denies fatigue, Denies fever(s), Denies headache(s) and Denies weakness ENT Denies dizziness and Denies headache(s) Card Denies chest pain, Denies lightheadedness, Denies dyspnea and Denies other (Palpitations) Resp Denies cough, Denies dyspnea, Denies wheezing and Denies other ( shortness of breath) Musc Denies numbness and Denies tingling Neuro Denies dizziness, Denies headache(s), Denies numbness, Denies tingling, Denies paresthesias and Denies weakness Psych Denies anxiety and Denies depression Endo Denies fatigue Aller/Immun Denies wheezing Physical exam (Primary Care) Vital Signs: Last Vital Signs Pulse 70 07/14/23 14:24 BP 128/72 07/14/23 14:24 Pulse Ox 95 07/14/23 14:24 Oxygen Delivery Method Room Air 07/14/23 14:24 BMI result Body Mass Index 26.4 Tobacco/Smoking Status: Tobacco use Status Tobacco use date assessed 07/14/23 07/14/23 14:27 Patient Tobacco Use Status Never used Tobacco 07/14/23 14:27 e-Cigarette/Vaping Use Never Used 07/14/23 14:27 Thrive Assessment: Date of Thrive Assessment Date Thrive assessed 04/17/23 07/14/23 14:27 Const General: no acute distress and well developed Nutritional Appearance: well nourished Orientation/consciousness: patient oriented x3 [facility] Head: Yes normocephalic and Yes atraumatic Eyes General: appearance normal, both eyes and all related structures Pupils: Equal, round and reactive pupils present EOM: EOMs intact bilaterally Resp Effort & Inspection: normal respiratory effort Auscultation: clear to auscultation bilaterally Cardio Rate: regular rate Rhythm: regular rhythm Heart sounds: S1 normal heart sound present, S2 normal heart sound present, no gallops, no murmurs and no rubs Neuro General: patient oriented x3 and gait normal Cranial nerves: Yes Equal, round and reactive pupils present Psych Affect: normal affect Assessment and Plan Assessment & Plan (1) Hypercholesterolemia: Code(s): E78.00 - Pure hypercholesterolemia, unspecified Plan: LDL?cholesterol?is?still?a?bit?above?goal. History?of?mild?carotid?artery?stenosis?and?goal?is?less?than?70?for?LDL HDL?is?good?and?HDL?ratios?are?very?good?as?well. He?would?like?to?trial?increasing?atorvastatin?to?30?mg?d aily.??We?did?discuss?lifestyle?changes?as?well. Will?recheck?lipids?in?a?few?months (2) Carotid artery stenosis: Code(s): I65.29 - Occlusion and stenosis of unspecified carotid artery Plan: Stable Medications: Changed From atorvastatin 20 mg PO BEDTIME 90 days 90 tabs 3RF To atorvastatin 30 mg (1.5 x 20 mg) PO BEDTIME 90 days 135 tabs 3RF Coding Level of Care Code Est Pt Level 3 (46928) Diagnoses Hypercholesterolemia E78.00 Carotid artery stenosis I65.29
== END 2023-07-14 15:06 | disposition home or self-care (01) ==
PROVIDERS: PCP Family Medicine; Visit Provider Family Medicine
DX: E78.00 Pure hypercholesterolemia, unspecified (principal); I65.29 Occlusion and stenosis of unspecified carotid artery
CPT/HCPCS: 99214

== ENCOUNTER 2023-10-05 08:49 | Outpatient (REF) | payer MEDICARE, SELFPAY | END 2023-10-05 08:50 | disposition home or self-care (01) | LOC: HO.WFDLDS 08:49 | PROVIDERS: Visit Provider Family Medicine | DX: Z13.89 Encounter for screening for other disorder (principal) ==

== ENCOUNTER 2023-10-13 08:25 | Outpatient (AMB) | payer MEDICARE, SELFPAY ==
--- NOTE | 2023-10-13 08:31 | A.OFFPC_ITS ---
Vital Signs 10/13/23 08:33 Height 5 ft 9 in Weight 177 lb 8 oz BMI 26.2 BP 110/76 Blood Pressure Location Lt brachial Position Sitting Pulse 83 Pulse Source Pulse Oximeter Pulse Oximetry (%) 97 Oxygen Delivery Method Room Air Intake Visit Reasons: f/u HLD Intake Note: Follow up. Had blood work done on 10/04, results not in chart. Called lab and they state the blood work was cancelled by provider. 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 Had increased artovastatin from 20mg to 30mg daily. Patient?had?labs?drawn?on?10/05/2023?and?lab?canceled?these (order?still?active) He?is?tolerating?atorvastatin?30?mg?daily Blood pressure today 110/76. HPI Comments History of Present Illness Details Documentation assistance for Brent Alcocer MD, was provided by Maxim Felder, Hospitality Director on 10/13/2023 at 8:57 AM EST. I, Dr. Alcocer, have read, observed, and verified documentation. [facility] Medical History History of cataract Surgical History History of colonoscopy History of tonsillectomy History of hernia surgery Family History Father Esophageal cancer Brother Colon cancer Small cell lung cancer Brother Colon cancer Paternal Grandmother Leukemia Maternal Grandmother Cervical cancer Son Testicular cancer Social History Household Members: Spouse Housing: House Are you a primary child care leader to a significant other at home: No Do you presently have visiting nurse or other home services: No Alcohol intake: never Patient Tobacco Use Status: Never used Tobacco e-Cigarette/Vaping Use: Never Used Second Hand Smoke Exposure: No service: Yes Current occupational status: retired Current occupational exposures/hazards: No Cognitive needs: No Hearing needs: No Vision needs: Yes (glasses) Questionnaire Thrive Questionnaire Date Thrive assessed: 04/17/23 ADEN-7 AMB Questionnaire ADEN-7 Date ADEN - 7 assessed: 04/17/23 Source: Developed by Drs. Gustavo Nieves, Ronda Bolanos, Niels Gomez and colleagues, with an educational tigre from [employer]. Review of Systems Const Denies chills, Denies fatigue, Denies fever(s), Denies headache(s) and Denies weakness ENT Denies dizziness and Denies headache(s) Card Denies dyspnea Resp Denies cough, Denies dyspnea, Denies wheezing and Denies other (shortness of breath) Musc Denies numbness and Denies tingling Neuro Denies dizziness, Denies headache(s), Denies numbness, Denies tingling and Denies weakness Psych Denies anxiety and Denies depression Endo Denies fatigue Aller/Immun Denies wheezing Physical exam (Primary Care) Vital Signs: Last Vital Signs Pulse 83 10/13/23 08:33 BP 110/76 10/13/23 08:33 Pulse Ox 97 10/13/23 08:33 Oxygen Delivery Method Room Air 10/13/23 08:33 BMI result Body Mass Index 26.2 Tobacco/Smoking Status: Tobacco use Status Tobacco use date assessed 10/13/23 10/13/23 08:36 Patient Tobacco Use Status Never used Tobacco 10/13/23 08:31 e-Cigarette/Vaping Use Never Used 10/13/23 08:31 Thrive Assessment: Date of Thrive Assessment Date Thrive assessed 04/17/23 10/13/23 08:31 Const General: well developed; No acute distress Nutritional Appearance: well nourished Orientation/consciousness: patient oriented x3 HENMT Head: Yes normocephalic and Yes atraumatic Eyes General: appearance normal, both eyes and all related structures Pupils: Equal, round and reactive pupils present EOM: EOMs intact bilaterally Resp Effort & Inspection: normal respiratory effort Neuro General: patient oriented x3 and gait normal Cranial nerves: Yes Equal, round and reactive pupils present Psych Affect: normal affect Assessment and Plan Assessment & Plan (1) Hypercholesterolemia: Code(s): E78.00 - Pure hypercholesterolemia, unspecified Plan: Patient?is?tolerating?atorvastatin?30?mg?daily History?of?mild?carotid?artery?stenosis?and?goal?is?less?than?70?for?his?LDL Patient?had?blood?drawn?but?lab?did?not?run?his?lipids He?is?getting?blood?redrawn?today We?can?follow-up?by?telemedicine?to?see?if?we?need?to?adjust?his?statin?further (2) Carotid artery stenosis: Code(s): I65.29 - Occlusion and stenosis of unspecified carotid artery Plan: As?above (3) Elevated TSH: Code(s): R79.89 - Other specified abnormal findings of blood chemistry Plan: Due?for?recheck?of?thyroid?hormone?levels?and?I?have?ordered?these.??He?will?hav e?them?drawn?today Plan Patient?follow-up?by?Dr. Parnell for?aortic?aneurysm Has?upcoming?echocardiogram?and?follow-up?with Dr Parnell Asked?him?to?have?office?visit?note?forwarded?to?me. Orders: Orders LDL Cholesterol Direct Today I65.29 - Occlusion and stenosis of unspecified carotid artery Free T4 (Free Thyroxine) Today E03.9 - Hypothyroidism, unspecified, R79.89 - Other specified abnormal findings of blood chemistry Triiodothyronine T3 Total Today E03.9 - Hypothyroidism, unspecified, R79.89 - Other specified abnormal findings of blood chemistry Thyroid Stimulating Hormone Today E03.9 - Hypothyroidism, unspecified, R79.89 - Other specified abnormal findings of blood chemistry Comprehensive Met. Panel Today R79.89 - Other specified abnormal findings of blood chemistry Coding Level of Care Code Est Pt Level 3 (02715) Diagnoses Hypercholesterolemia E78.00 Carotid artery stenosis I65.29 Elevated TSH R79.89
[2023-10-13 08:33] VITALS: BP 110/76; PULSE 83; O2SAT 97; BMI 26.2
== END 2023-10-13 09:08 | disposition home or self-care (01) ==
PROVIDERS: PCP Family Medicine; Visit Provider Family Medicine
DX: E78.00 Pure hypercholesterolemia, unspecified (principal); I65.29 Occlusion and stenosis of unspecified carotid artery; R79.89 Other specified abnormal findings of blood chemistry
CPT/HCPCS: 99213

== ENCOUNTER 2023-10-13 09:00 | Outpatient (REF) | payer MEDICARE, SELFPAY ==
[2023-10-13 11:58] LABS: Alanine Aminotransferase 17 U/L (0-40); Albumin Level 4.2 g/dL (3.5-5.0); Alkaline Phosphatase 57 U/L (39-117); Anion Gap 14 (12-20); Aspartate Amino Transferase 15 U/L (5-37); Bilirubin Total 1.4 mg/dL (0.0-1.0); Blood Urea Nitrogen 14 mg/dL (9-16); Calcium 9.4 mg/dL (8.4-10.2); Carbon Dioxide 24 mmol/L (22-29); Chloride 106 mmol/L (96-108); Cholesterol 145 mg/dL (<200); Estimated Glomerular Filt Rate > 60; Glucose Fasting 76 mg/dL (60-99); HDL Cholesterol 61 mg/dL (>40); LDL Cholesterol Calculated 61 mg/dL (<100); Potassium 3.9 mmol/L (3.3-5.1); Sodium 140 mmol/L (135-145); Total Protein 7.1 g/dL (6.5-8.0); Triglycerides 116 mg/dL (<150)
[2023-10-13 12:15] LABS: Free T4 (Free Thyroxine) 0.91 ng/dL (0.71-1.85); Thyroid Stimulating Hormone 3.31 uIU/mL (0.32-4.0)
[2023-10-15 13:37] LABS: LDL Cholesterol Direct 61 mg/dL (<100); Triiodothyronine T3 Total 103 ng/dL (76-181)
== END 2023-10-13 09:01 | disposition home or self-care (01) ==
LOC: HO.WFDLDS 09:00
PROVIDERS: Visit Provider Family Medicine
DX: Z00.00 Encounter for general adult medical examination without abnormal findings (principal); E03.9 Hypothyroidism, unspecified; I65.29 Occlusion and stenosis of unspecified carotid artery; R79.89 Other specified abnormal findings of blood chemistry
CPT/HCPCS: 36415; 80053; 80061; 83721; 84439; 84443; 84480

== ENCOUNTER 2023-11-04 09:16 | Outpatient (AMB) | payer MEDICARE, SELFPAY ==
--- NOTE | 2023-11-04 09:13 | A.OFFPC_ITS ---
Intake Visit Reasons: f/u labs via telemedicine Intake Note: lab f/u Allergies Influenza Virus Vaccines Adverse Reaction (Severe, Verified 11/04/23 09:14) serious flu over a week Uncooked dairy products Allergy (Severe, Uncoded 10/13/23 08:33) esophagus swollen, stop breathing Tobacco use date assessed: 10/13/23 Dental Screening Dental Screen Date: 04/17/23 HPI f/u labs via telemedicine HPI Details 73 y/o male presents to f/u labs via tel emedicine. Labs drawn 10/23/23. Reviewed labs with pt. Mild anemia. Triglycerides 116. TC 145. LDL 61. HDL 61. He is on artovastatin 30mg. Thryoid levels are fine. He states he is tolerating artovastatin well. HPI Comments History of Present Illness Details Documentation assistance for Brent Alcocer MD, was provided by Maxim Felder, Hoop Bender Tank on 11/04/2023 at 10:43 AM EST. I, Dr. Alcocer, have read, observed, and verified documentation. [facility] Medical History History of cataract Surgical History History of colonoscopy History of tonsillectomy History of hernia surgery Family History Father Esophageal cancer Brother Colon cancer Small cell lung cancer Brother Colon cancer Paternal Grandmother Leukemia Maternal Grandmother Cervical cancer Son Testicular cancer Social History Household Members: Spouse Housing: House Are you a primary pediatric acute care unit nurse to a significant other at home: No Do you presently have visiting nurse or other home services: No Alcohol intake: never Patient Tobacco Use Status: Never used Tobacco e-Cigarette/Vaping Use: Never Used Second Hand Smoke Exposure: No service: Yes Current occupational status: retired Current occupational exposures/hazards: No Cognitive needs: No Hearing needs: No Vision needs: Yes (glasses) Questionnaire Thrive Questionnaire Date Thrive assessed: 04/17/23 ADEN-7 AMB Questionnaire ADEN-7 Date ADEN - 7 assessed: 04/17/23 Source: Developed by Drs. Gustavo Nieves, Ronda Bolanos, Niels Gomez and colleagues, with an educational tigre from [employer]. Review of Systems Const Denies chills, Denies fatigue, Denies fever(s), Denies headache(s) and Denies weakness ENT Denies dizziness and Denies headache(s) Card Denies dyspnea Resp Denies cough, Denies dyspnea, Denies wheezing and Denies other (shortness of breath) Musc Denies numbness and Denies tingling Neuro Denies dizziness, Denies headache(s), Denies numbness, Denies tingling and Denies weakness Psych Denies anxiety and Denies depression Endo Denies fatigue Aller/Immun Denies wheezing Physical exam (Primary Care) Tobacco/Smoking Status: Tobacco use Status Tobacco use date assessed 10/13/23 11/04/23 09:15 Patient Tobacco Use Status Never used Tobacco 11/04/23 09:15 e-Cigarette/Vaping Use Never Used 11/04/23 09:15 Thrive Assessment: Date of Thrive Assessment Date Thrive assessed 04/17/23 11/04/23 09:15 Telehealth Telehealth Telehealth Platform: Telephone Location of provider rendering services: practice address Location of patient: address on file Patient Identification confirmed using: Name, : Yes Telehealth method: voice only Patient verbally consented to treatment: Yes Patient verbally consented to billing insurance company: Yes Patient informed of any privacy concerns related to visit: Yes Minutes spent on Phone/Video with Pt.: 5 Assessment and Plan Assessment & Plan (1) Mild anemia: Code(s): D64.9 - Anemia, unspecified Plan: Patient?had?been?followed?by?[facility]?Hematology-Oncology. Most?recent?lab?work?shows?that?his?complete?blood?count?is?stable He?is?now?on?vitamin?B12 Will?continue?to?monitor?his?H&H?periodically?and?if?there?is?any?concern,?will? refer?him?back?to?Hematology-Oncology (2) Hypercholesterolemia: Code(s): E78.00 - Pure hypercholesterolemia, unspecified Plan: LDL?cholesterol?was?above?his?goal?of?70 Had?increased?his?atorvastatin LDL?now?below?70 He?notes?some?mild?muscle?discomfort?and?will?try?taking?this?medication?at?bedt raissa. He?will?let?me?know?if?not?improving Coding Level of Care Code Tele Est Pt Level 2 (23060) Diagnoses Mild anemia D64.9 Hypercholesterolemia E78.00
== END 2023-11-04 17:15 | disposition home or self-care (01) ==
LOC: HO.HMGFM 09:17
PROVIDERS: PCP Family Medicine; Visit Provider Family Medicine
DX: D64.9 Anemia, unspecified (principal); E78.00 Pure hypercholesterolemia, unspecified
CPT/HCPCS: 99441

== ENCOUNTER 2024-05-06 08:03 | Outpatient (AMB) | payer MEDICARE, SELFPAY ==
--- OUTSIDE RECORDS SUMMARY | 2024-05-06 08:06 | XMS_ITS | Patient Health Record ---
Author Organization [facility] Address [address] [place] [address] Care Team Providers Care Content Designer Name Role Phone Carlyn DWYER, Brent Primary Care Provider Angi Cloud Unavailable [phone] Allergies Allergen (clinical drug ingredient) Drug/Non Drug Allergy documented on EMR Reaction Allergy Type Onset Date Status uncooked Dairy: Esophagus swells/breathing restricted (uncoded) Unknown Allergy Active Flu Virus Vaccine Unknown Drug Allergy Active Reason For Referral No Information Problems Problem Type SNOMED Code ICD Code Onset Dates Problem Status W/U Status Risk Notes Problem 139236548 Neuropathy (G62.9) Active confirmed Problem 58338500 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 Plan Of Treatment Pending Test Test Name Order Date X ray : Foot, left 3V 07/26/2021 Insurance Providers Payer Name Payer Address Payer Phone Subscriber Number Group Number Insured Name Patient Relationship to Insured Coverage Start Date Coverage End Date [facility] [address] [facility] [place] [id number] Andreas Lombardo Self - patient is the insured Medical (General) History Medical History History ICD Code Cataracts Diverticulosis Measles Mumps Chicken pox Expanded Aorta/Valve bicuspid/leaks Surgical History Surgery Date(Month/Year) Hernia Repair vasectomy 1983 cataract surgery 2012
--- NOTE | 2024-05-06 09:08 | A.OFFPC_ITS ---
Vital Signs 05/06/24 09:19 Height 5 ft 9 in Weight 181 lb 2 oz BMI 26.7 BP 130/70 Blood Pressure Location Lt brachial Position Sitting Respiration 14 Pulse 74 Pulse Source Pulse Oximeter Temp 97.8 F Temp Source Oral Pulse Oximetry (%) 97 Oxygen Delivery Method Room Air Intake Visit Reasons: Extended exam with f/u labs and health maint. Intake Note: extended exam Allergies Influenza Virus Vaccines Adverse Reaction (Severe, Verified 05/06/24 09:10) serious flu over a week Uncooked dairy products Allergy (Severe, Uncoded 10/13/23 08:33) esophagus swollen, stop breathing Tobacco use date assessed: 05/06/24 Fall risk assessment: 2 + Falls in past year (due to ice) Last assessed Fall Risk: 05/06/24 Dental Screening Dental Screen Date: 05/06/24 Did you have a dental visit in the last 12 months?: No Did you have a dental problem in the last 6 months where you did not have access to dental care?: No Was dental information given to patient?: No HPI Extended exam with f/u labs and health maint. HPI Details 74 y/o male presents for an extended exa m with f/u labs and health maintenance. No recent CPE-labs to review. Blood pressure today 130/70, 74p. Hx of aortic aneurysm, carotid artery stenosis and pt notes he is followed by Cardiology. HPI Comments History of Present Illness Details Documentation assistance for Brent Alcocer MD, was provided by Maxim Felder, Program Analyst on 05/06/2024 at 9:41 AM EST. I, Dr. Alcocer, have read, observed, and verified documentation. [facility] Medical History History of cataract Surgical History History of colonoscopy History of tonsillectomy History of hernia surgery Family History Father Esophageal cancer Brother Colon cancer Small cell lung cancer Brother Colon cancer Paternal Grandmother Leukemia Maternal Grandmother Cervical cancer Son Testicular cancer Social History Household Members: Spouse Housing: House Are you a primary health care attorney to a significant other at home: No Do you presently have visiting nurse or other home services: No Alcohol intake: never Patient Tobacco Use Status: Never used Tobacco e-Cigarette/Vaping Use: Never Used Second Hand Smoke Exposure: No service: Yes Current occupational status: retired Current occupational exposures/hazards: No Cognitive needs: No Hearing needs: No Vision needs: Yes (glasses) Questionnaire PHQ-9 Over the last 2 weeks, how often have you been bothered by any of the following problems? 00740 - PHQ-9 Billing: Patient declined-do not bill Source: Developed by Drs. Gustavo Nieves, Ronda Bolanos, Niels Gomez and colleagues, with an educational tigre from [employer]. Thrive Questionnaire Date Thrive assessed: 05/06/24 What is your living situation today?: I have a steady place to live Within the past 12 months, did the food you bought not last and you didn't have the money to get more?: Never true Within the past 12 months, did you worry whether your food would run out before you got money to buy more?: Never true Do you have trouble paying for medicines?: No Do you have trouble getting transportation to medical appointments?: No Do you have trouble paying your heating and electricity bill?: No Do you have trouble taking care of your child, family member or friend?: No Do you have trouble with day-to-day activities such as bathing, preparing meals, shopping, managing finances, etc.?: No Are you currently unemployed and looking for a job?: No Are you interested in more education?: No Please select the resources that you would like help with: None Currently or been in a relationship where the following occur: No concerns reported THRIVE Score: 0 AUDIT C Alcohol Use Questionnaire (AUDIT-C) 1. How often do you have a drink containing alcohol?: Never 3. How often do you have six or more drinks on one occasion?: Never Total Score: 0 ADEN-7 AMB Questionnaire ADEN-7 Date ADEN - 7 assessed: 05/06/24 Feeling nervous, anxious, or on edge: 0 = Not at all Not being able to stop or control worryin = Not at all Worrying too much about different things: 0 = Not at all Trouble relaxin = Not at all Being so restless that it is hard to sit still: 0 = Not at all Becoming easily annoyed or irritable: 0 = Not at all Feeling afraid as if something awful might happen: 0 = Not at all Total ADEN-7 score (0-4 normal; 5-9 mild; 10-14 moderate; 15-21 severe): 0 Source: Developed by Drs. Gustavo Nieves, Ronda Bolanos, Niels Gomez and colleagues, with an educational tigre from [employer]. ADEN-7 Assessment Billing ADEN-7 Assessment Tool: ADEN-7 Assessment 01529 Review of Systems Const Denies chills, Denies fatigue, Denies fever(s), Denies headache(s) and Denies weakness Eyes Denies change in vision ENT Denies dizziness, Denies headache(s), Denies hearing loss, Denies nasal congestion, Denies sinus pain, Denies sinus pressure and Denies sore throat Card Denies chest pain, Denies lightheadedness, Denies dyspnea and Denies other (palpitations) Resp Denies cough, Denies dyspnea and Denies wheezing GI Denies abdominal pain, Denies melena, Denies hematochezia, Denies change in bowel habits, Denies dyspepsia and Denies nausea Denies hematuria and Denies dysuria Musc Denies abnormal gait, Denies myalgias, Denies arthralgias, Denies numbness and Denies tingling Skin/Breast Denies rash, Denies unusual bruising and Denies wounds Neuro Denies abnormal gait, Denies dizziness, Denies headache(s), Denies memory loss, Denies numbness, Denies Sensory deficit (Neuro), Denies tingling and Denies weakness Psych Denies anxiety, Denies depression and Denies memory loss Endo Denies cold intolerance, Denies fatigue, Denies heat intolerance, Denies polydipsia and Denies polyuria Aram/Lymph Denies easy bleeding and Denies easy bruising Aller/Immun Denies wheezing Physical exam (Primary Care) Vital Signs: Last Vital Signs Temp 97.8 F 05/06/24 09:19 Pulse 74 05/06/24 09:19 Resp 14 05/06/24 09:19 BP 130/70 05/06/24 09:19 Pulse Ox 97 05/06/24 09:19 Oxygen Delivery Method Room Air 05/06/24 09:19 BMI result Body Mass Index 26.7 Tobacco/Smoking Status: Tobacco use Status Tobacco use date assessed 05/06/24 05/06/24 09:22 Patient Tobacco Use Status Never used Tobacco 05/06/24 09:22 e-Cigarette/Vaping Use Never Used 05/06/24 09:22 Thrive Assessment: Date of Thrive Assessment Date Thrive assessed 05/06/24 05/06/24 09:22 Currently or been in a relationship where the following occur: No concerns reported Const General: no acute distress, well developed, alert and awake Nutritional Appearance: well nourished Orientation/consciousness: patient oriented x3 HENMT Head: Yes normocephalic and Yes atraumatic Ears: hearing grossly normal bilaterally and TM's normal bilaterally General nose exam: Normal external nose present and Normal nares present Mouth: Normal oral and palatal mucosa present and moist mucous membranes Teeth and gingiva: dentition normal Throat: Yes posterior oropharynx normal Eyes General: appearance normal, both eyes and all related structures Pupils: Equal, round and reactive pupils present and Pupil accommodation reflex normal EOM: EOMs intact bilaterally Neck Neck: Yes normal visual inspection, Yes no lymphadenopathy and Yes trachea midline Thyroid: Thyroid normal Carotids: no bruits Lymphatic: no lymphadenopathy noted Chest Chest palpation & inspection: normal inspection of the chest Resp Effort & Inspection: normal respiratory effort Auscultation: clear to auscultation bilaterally Cardio Rate: regular rate Rhythm: regular rhythm Heart sounds: S1 normal heart sound present, S2 normal heart sound present, no gallops, Murmur heart sound present and no rubs Bruits: no abdominal aortic bruits and no carotid bruits GI Palpation (GI): No Abdominal aortic bruit present, Soft to palpation, nontender, No hepatosplenomegaly present and No Rebound tenderness present Auscultation: normal bowel sounds General: Yes no CVA tenderness Back/Spine/Pelvis Back: no CVA tenderness Cervical Spine: cervical ROM normal and No Cervical spine tenderness Thoracic/Lumbar Spine: thoraco-lumbar ROM normal, No pain with thoraco-lumbar ROM, No thoracic spinal tenderness and No lumbar spinal tenderness Skin Lesions: no lesions Rashes: no rashes Trauma: no lacerations or abrasions Wounds: no wounds Nails: normal Neuro General: patient oriented x3 Cranial nerves: Yes Equal, round and reactive pupils present Cognition (Neuro): normal cognition Gait exam (Neuro): Normal gait present Motor exam (neuro): 5/5 motor strength present throughout Sensory Exam: No Sensory deficit (Neuro) Deep tendon reflexes (DTR's): Right patellar reflex intensity grade: 2+ and Left patellar reflex intensity grade: 2+ Extrem General: Yes normal to inspection and No edema Psych Appearance: grossly normal Affect: normal affect Attitude: cooperative Thought process: Normal thought process present Coding Level of Care Code Est Pt Level 4 (64188) Diagnoses Hypercholesterolemia E78.00 History of aortic aneurysm Z86.79 Carotid artery stenosis I65.29 Screening for prostate cancer Z12.5 Screening for colon cancer Z12.11 Adult general medical exam Z00.00 Additional Codes ADEN-7 Assessment Billing - ADEN-7 Assessment Tool: ADEN-7 Assessment 19146 ([id number]) Assessment & Plan Assessment & Plan (1) Hypercholesterolemia: Code(s): E78.00 - Pure hypercholesterolemia, unspecified Category: Medical Plan: He?continues?atorvastatin He?switched?to?taking?this?at?bedtime?and?muscle?achiness?has?resolved. He?had?his?labs?drawn?today?and?we?can?follow-up?lipids?at?a?subsequent?visit (2) History of aortic aneurysm: Code(s): Z86.79 - Personal history of other diseases of the circulatory system Category: Medical Plan: Stable Follow-up?with?Cardiology?as?recommended (3) Carotid artery stenosis: Code(s): I65.29 - Occlusion and stenosis of unspecified carotid artery Category: Medical Plan: Continue?atorvastatin Follow-up?with?Cardiology?recommended (4) Screening for prostate cancer: Code(s): Z12.5 - Encounter for screening for malignant neoplasm of prostate Category: Medical Plan: Check?PSA (5) Screening for colon cancer: Code(s): Z12.11 - Encounter for screening for malignant neoplasm of colon Category: Medical Plan: Patient?says?his?last?colonoscopy?was?not?10?years?ago Referred?to?Gastroenterology (6) Adult general medical exam: Code(s): Z00.00 - Encounter for general adult medical examination without abnormal findings Category: Medical Plan: 74-year-old?male?presents?for?an?extended?exam Encouraged?healthy?diet?with?active?lifestyle?and?plenty?of?exercise Encouraged?mild?weight?loss?as?he?has?gained?weight?lately Orders: Orders Complete Blood Count Auto Diff Today Z00.00 - Encounter for general adult medical examination without abnormal findings Microalbumin, Random (w Creat) Today I10 - Essential (primary) hypertension Prostate Specific Antigen Scr Today Z12.5 - Encounter for screening for malignant neoplasm of prostate TSH reflex Free T4 Today Z00.00 - Encounter for general adult medical examination without abnormal findings UA and rflx microscopic Today Z00.00 - Encounter for general adult medical examination without abnormal findings Referrals Gastroenterology Referral Z12.11 - Encounter for screening for malignant neoplasm of colon
[2024-05-06 09:19] VITALS: BP 130/70; PULSE 74; RESP 14; TEMP 36.6; O2SAT 97; BMI 26.7
== END 2024-05-06 10:02 | disposition home or self-care (01) ==
PROVIDERS: PCP Family Medicine; Visit Provider Family Medicine
DX: E78.00 Pure hypercholesterolemia, unspecified (principal); Z86.79 Personal history of other diseases of the circulatory system; I65.29 Occlusion and stenosis of unspecified carotid artery; Z12.5 Encounter for screening for malignant neoplasm of prostate; Z12.11 Encounter for screening for malignant neoplasm of colon; Z00.00 Encounter for general adult medical examination without abnormal findings

== ENCOUNTER 2024-05-06 08:36 | Outpatient (REF) | payer MEDICARE, SELFPAY ==
[2024-05-06 11:58] LABS: Alanine Aminotransferase 21 U/L (0-40); Albumin Level 4.3 g/dL (3.5-5.0); Alkaline Phosphatase 59 U/L (39-117); Anion Gap 10 (12-20); Aspartate Amino Transferase 24 U/L (5-37); Bilirubin Total 1.8 mg/dL (0.0-1.0); Blood Urea Nitrogen 14 mg/dL (9-16); Carbon Dioxide 26 mmol/L (22-29); Chloride 106 mmol/L (96-108); Cholesterol 167 mg/dL (<200); Estimated Glomerular Filt Rate > 60; Glucose Fasting 90 mg/dL (60-99); HDL Cholesterol 73 mg/dL (>40); LDL Cholesterol Calculated 78 mg/dL (<100); Sodium 138 mmol/L (135-145); Total Protein 7.3 g/dL (6.5-8.0); Triglycerides 80 mg/dL (<150)
== END 2024-05-06 08:37 | disposition home or self-care (01) ==
LOC: HO.WFDLDS 08:36
PROVIDERS: Visit Provider Family Medicine
DX: Z00.00 Encounter for general adult medical examination without abnormal findings (principal); I10 Essential (primary) hypertension; I65.29 Occlusion and stenosis of unspecified carotid artery; E78.00 Pure hypercholesterolemia, unspecified; Z86.79 Personal history of other diseases of the circulatory system
CPT/HCPCS: 36415; 80053; 80061; 96127; 99212

== ENCOUNTER 2024-05-10 08:47 | Outpatient (REF) | payer MEDICARE, SELFPAY ==
--- OUTSIDE RECORDS SUMMARY | 2024-05-10 09:17 | XMS_ITS | Patient Health Record ---
[facility] Organization [facility] Address [address] [facility] [place] [address] Care Team Providers Care Hydraulic Miner Name Role Phone Carlyn DWYER, Brent Primary Care Provider Angi Cloud Unavailable [phone] Allergies Allergen (clinical drug ingredient) Drug/Non Drug Allergy documented on EMR Reaction Allergy Type Onset Date Status uncooked Dairy: Esophagus swells/breathing restricted (uncoded) Unknown Allergy Active Flu Virus Vaccine Unknown Drug Allergy Active Reason For Referral No Information Problems Problem Type SNOMED Code ICD Code Onset Dates Problem Status W/U Status Risk Notes Problem 611156379 Neuropathy (G62.9) Active confirmed Problem 21274758 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 Plan Of Treatment Pending Test Test Name Order Date X ray : Foot, left 3V 07/26/2021 Insurance Providers Payer Name Payer Address Payer Phone Subscriber Number Group Number Insured Name Patient Relationship to Insured Coverage Start Date Coverage End Date [facility] [address] [facility] [place] [id number] [phone] [id number] Andreas Lombardo Self - patient is the insured Medical (General) History Medical History History ICD Code Cataracts Diverticulosis Measles Mumps Chicken pox Expanded Aorta/Valve bicuspid/leaks Surgical History Surgery Date(Month/Year) Hernia Repair vasectomy 1983 cataract surgery 2012
[2024-05-10 10:59] LABS: MANUAL DIFF FLAG NO
[2024-05-10 11:15] LABS: Basophils Percent Auto 0.7 % (0-2); Eosinophils Absolute Auto 0.1 X10*3/uL (0.0-0.4); Eosinophils Percent Auto 1.4 % (0-4); Hematocrit 38.1 % (42.0-52.0); Hemoglobin 12.6 g/dl (14.0-18.0); Imm Gran Abs Auto 0.01 X10*3/uL (0.00-0.03); Imm Gran Pct Auto 0.2 % (0.0-0.4); Lymphocytes Percent Auto 23.3 % (20-40); Mean Corpuscular HGB Conc 33.1 g/dl (31.0-36.0); Mean Corpuscular Hemoglobin 30.4 pg (27.0-33.0); Mean Corpuscular Volume 91.8 fL (80.0-98.0); Mean Platelet Volume 9.2 fL (9.4-12.4); Monocytes Absolute Auto 0.3 X10*3/uL (0.1-1.2); Monocytes Percent Auto 7.9 % (2-11); Neutrophils Absolute Auto 2.8 x10*3/uL (2.0-8.3); Neutrophils Percent Auto 66.5 % (45-73); Platelet Count 205 X10*3/uL (160-400); Red Blood Count 4.15 X10*6/uL (4.60-5.80); Red Cell Distribution Width 13.2 % (11.0-16.0); White Blood Count 4.2 X10*3/uL (4.8-10.8)
[2024-05-10 12:05] LABS: Alanine Aminotransferase 18 U/L (0-40); Albumin Level 4.2 g/dL (3.5-5.0); Alkaline Phosphatase 56 U/L (39-117); Anion Gap 9 (12-20); Aspartate Amino Transferase 21 U/L (5-37); Bilirubin Total 1.9 mg/dL (0.0-1.0); Blood Urea Nitrogen 15 mg/dL (9-16); Calcium 8.6 mg/dL (8.4-10.2); Carbon Dioxide 26 mmol/L (22-29); Chloride 109 mmol/L (96-108); Estimated Glomerular Filt Rate > 60; Glucose Fasting 89 mg/dL (60-99); Glucose Random 89 mg/dL (60-115); Potassium 4.2 mmol/L (3.3-5.1); Sodium 140 mmol/L (135-145); Total Protein 7.2 g/dL (6.5-8.0)
[2024-05-10 12:21] LABS: TSH reflex Free T4 3.93 uIU/mL (0.32-4.0)
[2024-05-10 12:32] LABS: Prostate Specific Antigen Scr 4.71 ng/mL (<0.05-4.0)
[2024-05-10 14:24] LABS: Appearance Urine Clear; Color Urine Yellow; Glucose Urine UA Negative (Negative); Leukocyte Esterase Urine Negative (Negative); Nitrite Urine Negative (Negative); Urine Blood Negative (Negative); Urine Ketones Negative (Negative); Urine Protein Negative (Neg-Trace)
[2024-05-10 14:58] LABS: Creatinine Urine 149.39 mg/dL; Microalbum/Creatinine Ratio Ur 6.6 ug/mg cr (<30)
[2024-05-11 05:34] LABS: LDL Cholesterol Direct 62 mg/dL (<100)
== END 2024-05-10 08:48 | disposition home or self-care (01) ==
LOC: HO.WFDLDS 08:47
PROVIDERS: Visit Provider Family Medicine
DX: Z00.00 Encounter for general adult medical examination without abnormal findings (principal); E78.00 Pure hypercholesterolemia, unspecified; E78.5 Hyperlipidemia, unspecified; R79.89 Other specified abnormal findings of blood chemistry; I10 Essential (primary) hypertension; Z12.5 Encounter for screening for malignant neoplasm of prostate
CPT/HCPCS: 36415; 80053; 81003; 82043; 82570; 83721; 84153; 84443; 85025

== ENCOUNTER 2024-09-13 08:18 | Outpatient (AMB) | payer MEDICARE, SELFPAY ==
--- OUTSIDE RECORDS SUMMARY | 2024-09-13 08:28 | XMS_ITS | Patient Health Record ---
[facility] Organization [facility] Address [address] [facility] [place] [address] Care Team Providers Care Opinion Polls Survey Worker Name Role Phone Carlyn DWYER, Brent Primary Care Provider Angi Cloud Unavailable [phone] Allergies Allergen (clinical drug ingredient) Drug/Non Drug Allergy documented on EMR Reaction Allergy Type Onset Date Status uncooked Dairy: Esophagus swells/breathing restricted (uncoded) Unknown Allergy Active Flu Virus Vaccine Unknown Drug Allergy Active Reason For Referral No Information Problems Problem Type SNOMED Code ICD Code Onset Dates Problem Status W/U Status Risk Notes Problem 030637506 Neuropathy (G62.9) Active confirmed Problem 47622898 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 Plan Of Treatment Pending Test Test Name Order Date X ray : Foot, left 3V 07/26/2021 Insurance Providers Payer Name Payer Address Payer Phone Subscriber Number Group Number Insured Name Patient Relationship to Insured Coverage Start Date Coverage End Date [facility] [address] [facility] [place] [id number] [phone] [id number] Andreas Lombardo Self - patient is the insured Medical (General) History Medical History History ICD Code Cataracts Diverticulosis Measles Mumps Chicken pox Expanded Aorta/Valve bicuspid/leaks Surgical History Surgery Date(Month/Year) Hernia Repair vasectomy 1983 cataract surgery 2012
--- NOTE | 2024-09-13 08:34 | MHC.PC.OV ---
Vital Signs 09/13/24 08:39 Height 5 ft 9 in Weight 174 lb BMI 25.7 BP 122/68 Blood Pressure Location Rt brachial Position Sitting Respiration 14 Pulse 76 Pulse Source Pulse Oximeter Temp 98.3 F Temp Source Temporal Artery Scan Pulse Oximetry (%) 95 Oxygen Delivery Method Room Air Intake Visit Reasons: f/u HLD, blood pressure Intake Note: Andreas presents in the office today for a follow up to his HLD and BP. Allergies Influenza Virus Vaccines Adverse Reaction (Severe, Verified 09/13/24 08:38) serious flu over a week Uncooked dairy products Allergy (Severe, Uncoded 09/13/24 08:38) esophagus swollen, stop breathing Medication List - Last Reconciled 09/13/24 by Brent Alcocer MD atorvastatin 40 mg PO BEDTIME 90 days cyanocobalamin (vitamin B-12) (Vitamin B-12) 1,000 mcg PO DAILY Tobacco use date assessed: 09/13/24 Dental Screening Dental Screen Date: 09/13/24 Did you have a dental visit in the last 12 months?: No Did you have a dental problem in the last 6 months where you did not have access to dental care?: No Was dental information given to patient?: Yes HPI f/u HLD, blood pressure HPI Details Direct LDL?cholesterol?<70 ?on?atorvastatin Blood?pressure?less?130/80 Patient?has?been?working?on?weight?loss?and?exercise Recent?hospital?visit?after?impact?to?his?neck?with?swelling.??This?has?resolved Reviewed?labs?patient?today [facility] Medical History History of cataract Surgical History History of colonoscopy History of tonsillectomy History of hernia surgery Family History Father Esophageal cancer Brother Colon cancer Small cell lung cancer Brother Colon cancer Paternal Grandmother Leukemia Maternal Grandmother Cervical cancer Son Testicular cancer Social History (Updated 09/13/24 @ 08:38 by Susan Ohara MA) Household Members: Spouse Housing: House Are you a primary veterinarian laboratory animal care to a significant other at home: No Do you presently have visiting nurse or other home services: No Alcohol intake: never Patient Tobacco Use Status: Never used Tobacco e-Cigarette/Vaping Use: Never Used Second Hand Smoke Exposure: No service: Yes Current occupational status: retired Current occupational exposures/hazards: No Cognitive needs: No Hearing needs: No Vision needs: Yes (glasses) Questionnaire PHQ-9 Over the last 2 weeks, how often have you been bothered by any of the following problems? 1. Little interest or pleasure in doing things: not at all 2. Feeling down, depressed, or hopeless: not at all 3. Trouble falling or staying asleep, or sleeping too much: not at all 4. Feeling tired or having little energy: not at all 5. Poor appetite or overeating: not at all 6. Feeling bad about yourself - or that you are a failure or have let yourself or your family down: not at all 7. Trouble concentrating on things, such as reading the newspaper or watching television: not at all 8. Moving or speaking so slowly that other people could have noticed. Or the opposite - being so fidgety or restless that you have been moving around a lot more than usual: not at all 9. Thoughts that you would be better off or of hurting yourself in some way: not at all Total score: 0 Depression Screening Interpretation: Negative Depression Screening Done: Yes 85243 - PHQ-9 Billing: Yes Source: Developed by Drs. Gustavo Nieves, Ronda Bolanos, Niels Gomez and colleagues, with an educational tigre from [employer]. Thrive Questionnaire Date Thrive assessed: 09/13/24 I am a: Parent/Caregiver What is your living situation today?: I have a steady place to live Within the past 12 months, did the food you bought not last and you didn't have the money to get more?: Never true Within the past 12 months, did you worry whether your food would run out before you got money to buy more?: Never true Do you have trouble paying for medicines?: I choose not to answer this question Do you have trouble getting transportation to medical appointments?: No Do you have trouble paying your heating and electricity bill?: I choose not to answer this question Do you have trouble taking care of your child, family member or friend?: No Do you have trouble with day-to-day activities such as bathing, preparing meals, shopping, managing finances, etc.?: No Are you currently unemployed and looking for a job?: I choose not to answer this question Are you interested in more education?: No Please select the resources that you would like help with: None Currently or been in a relationship where the following occur: No concerns reported THRIVE Score: 0 AUDIT C Alcohol Use Questionnaire (AUDIT-C) 1. How often do you have a drink containing alcohol?: Never Total Score: 0 ADEN-7 AMB Questionnaire ADEN-7 Date ADEN - 7 assessed: 09/13/24 Source: Developed by Drs. Gustavo Nieves, Ronda Bolanos, Niels Gomez and colleagues, with an educational tigre from [employer]. Review of Systems Const Denies chills, Denies fatigue, Denies fever(s), Denies headache(s) and Denies weakness ENT Denies dizziness and Denies headache(s) Card Denies chest pain, Denies lightheadedness, Denies dyspnea and Denies other (Palpitations) Resp Denies cough, Denies dyspnea, Denies wheezing and Denies other ( shortness of breath) Musc Denies numbness and Denies tingling Neuro Denies dizziness, Denies headache(s), Denies numbness, Denies tingling, Denies paresthesias and Denies weakness Psych Denies anxiety and Denies depression Endo Denies fatigue Aller/Immun Denies wheezing Physical exam (Primary Care) Vital Signs: Last Vital Signs Temp 98.3 F 09/13/24 08:39 Pulse 76 09/13/24 08:39 Resp 14 09/13/24 08:39 BP 122/68 09/13/24 08:39 Pulse Ox 95 09/13/24 08:39 Oxygen Delivery Method Room Air 09/13/24 08:39 BMI result Body Mass Index 25.7 Tobacco/Smoking Status: Tobacco use Status Tobacco use date assessed 09/13/24 09/13/24 08:44 Patient Tobacco Use Status Never used Tobacco 09/13/24 08:38 e-Cigarette/Vaping Use Never Used 09/13/24 08:38 PHQ-9: PHQ-9 Score PHQ-9: Total score 0 09/13/24 08:44 Depression Screening Interpretation: Negative Thrive Assessment: Date of Thrive Assessment Date Thrive assessed 09/13/24 09/13/24 08:44 Currently or been in a relationship where the following occur: No concerns reported Const General: no acute distress and well developed Nutritional Appearance: well nourished Orientation/consciousness: patient oriented x3 HENMT Head: Yes normocephalic and Yes atraumatic Eyes General: appearance normal, both eyes and all related structures Pupils: Equal, round and reactive pupils present EOM: EOMs intact bilaterally Resp Effort & Inspection: normal respiratory effort Auscultation: clear to auscultation bilaterally Cardio Rate: regular rate Rhythm: regular rhythm Heart sounds: S1 normal heart sound present, S2 normal heart sound present, no gallops, no murmurs and no rubs Neuro General: patient oriented x3 and gait normal Cranial nerves: Yes Equal, round and reactive pupils present Psych Affect: normal affect Coding Level of Care Code Est Pt Level 4 (25378) Diagnoses Elevated TSH R79.89 Elevated PSA R97.20 Mild anemia D64.9 Contusion of neck S10.93XA Hypercholesterolemia E78.00 Additional Codes PHQ-9 - 32684 - PHQ-9 Billing: Yes ([id number]) Assessment & Plan Assessment & Plan (1) Elevated TSH: Code(s): R79.89 - Other specified abnormal findings of blood chemistry Category: Medical Plan: Recheck TSH?was?within?normal?range (2) Elevated PSA: Code(s): R97.20 - Elevated prostate specific antigen [PSA] Category: Medical Plan: PSA?mildly?elevated?at?4.71 He?does?have?a?history?of?BPH Currently?urinating?without?difficulty Will?repeat?PSA (3) Mild anemia: Code(s): D64.9 - Anemia, unspecified Category: Medical Plan: Mild?stable?knee Will?continue?to?monitor (4) Contusion of neck: Code(s): S10.93XA - Contusion of unspecified part of neck, initial encounter Category: Medical Plan: Patient?went[facility]ED[facility]for?swelling?at?neck?after?getting?him?by?a?door CT?scan?was?okay This?has?resolved (5) Hypercholesterolemia: Code(s): E78.00 - Pure hypercholesterolemia, unspecified Category: Medical Plan: LDL?cholesterol?is?at?goal?of?less?than?70 Continue?atorvastatin Plan Had?been?following?patient's?weight He?has?been?working?on?this?and?has?lost?about?6?or?7?lb?since?last?visit Encouraged?him?to?continue?healthy?diet?and?plenty?of?exercise/active Orders: Orders Basic Metabolic Panel Today N40.0 - Benign prostatic hyperplasia without lower urinary tract symptoms, Z00.00 - Encounter for general adult medical examination without abnormal findings Prostate Specific Antigen Scr Today Z12.5 - Encounter for screening for malignant neoplasm of prostate
[2024-09-13 08:39] VITALS: BP 122/68; PULSE 76; RESP 14; TEMP 36.8; O2SAT 95; BMI 25.7
== END 2024-09-13 09:10 | disposition home or self-care (01) ==
LOC: HO.HMCFM 08:19
PROVIDERS: PCP Family Medicine; Visit Provider Family Medicine
DX: R79.89 Other specified abnormal findings of blood chemistry (principal); R97.20 Elevated prostate specific antigen [PSA]; D64.9 Anemia, unspecified; S10.93XA Contusion of unspecified part of neck, initial encounter; E78.00 Pure hypercholesterolemia, unspecified

== ENCOUNTER → 2024-09-13 08:18 | Outpatient (BNVA) | payer MEDICARE, SELFPAY | PROVIDERS: PCP Family Medicine; Visit Provider Family Medicine | DX: Z13.89 Encounter for screening for other disorder (principal) ==

== ENCOUNTER 2024-09-13 09:03 | Outpatient (REF) | payer MEDICARE, SELFPAY ==
[2024-09-13 11:54] LABS: Anion Gap 11 (12-20); Blood Urea Nitrogen 14 mg/dL (9-16); Calcium 8.8 mg/dL (8.4-10.2); Carbon Dioxide 25 mmol/L (22-29); Chloride 109 mmol/L (96-108); Estimated Glomerular Filt Rate > 60; Glucose Random 77 mg/dL (60-115); Potassium 3.9 mmol/L (3.3-5.1); Sodium 141 mmol/L (135-145)
[2024-09-13 12:06] LABS: Prostate Specific Antigen Scr 4.89 ng/mL (<0.05-4.0)
== END 2024-09-13 09:04 | disposition home or self-care (01) ==
LOC: HO.WFDLDS 09:03
PROVIDERS: Visit Provider Family Medicine
DX: R94.6 Abnormal results of thyroid function studies (principal); R97.20 Elevated prostate specific antigen [PSA]; D64.9 Anemia, unspecified; S10.93XD Contusion of unspecified part of neck, subsequent encounter; E78.00 Pure hypercholesterolemia, unspecified; Z00.00 Encounter for general adult medical examination without abnormal findings; N40.0 Benign prostatic hyperplasia without lower urinary tract symptoms; Z12.5 Encounter for screening for malignant neoplasm of prostate
CPT/HCPCS: 36415; 80048; 84153; 96127; 99212

== ENCOUNTER 2024-09-14 13:48 | Outpatient (AMB) | payer MEDICARE, SELFPAY ==
[2024-09-14 13:56] VITALS: BP 114/88; PULSE 94; O2SAT 97; BMI 25.7
--- NOTE | 2024-09-14 13:56 | A.OFFVIS_ITS ---
Vital Signs 09/14/24 13:56 Height 5 ft 9 in Weight 174 lb BMI 25.7 BP 114/88 Blood Pressure Location Rt brachial Position Sitting Pulse 94 Pulse Source Pulse Oximeter Pulse Oximetry (%) 97 Oxygen Delivery Method Room Air Intake Visit Reasons: [place] screening Intake Note: New patient for colo screening. CC; Pt denies any GI sx or concerns at this time. + FMHx reported (brothers) Manager Purchasing Required: No Accompanied by: Self / Same As Patient Allergies Influenza Virus Vaccines Adverse Reaction (Severe, Verified 09/14/24 13:56) serious flu over a week Uncooked dairy products Allergy (Severe, Uncoded 09/14/24 13:56) esophagus swollen, stop breathing HPI HPI [place] screening: Details: 74 year old? male with past medial history of aortic aneurysm, hypercholesteremia is here today for pre colonoscopy screening.? Patient was sent to us by his PCP.? Last colonoscopy in 2018. Patient had normal colonoscopy then. However due to family history of CRC patient is on 5 year recall plan. Patient had 2 brothers diagnosed with CRC in their 60s. Patient denies any gastrointestinal symptoms in the past or at present.? Denies any personal or family history of gastrointestinal disease, colon polyps, or CRC.? Denies history of difficulty with sedation or anesthesia in the past.? Negative for history of sleep apnea.? Denies any history of renal, pulmonary, or hepatic disease.??History of aortic aneurysm last visit with Cardiology month ago. Patient was informed that the size of the aneurysm is 45 mm. Patient has another appointment with him in November and has a echo do. We will call his cell support operator for clearance. He sees Dr. Barreto [phone]. No history of infectious? diseases like hepatitis A, B, C, HIV or tuberculosis.? Patient is not on any anticoagulation [facility] Medical History History of cataract Surgical History History of colonoscopy History of tonsillectomy History of hernia surgery Family History Father Esophageal cancer Brother Colon cancer Small cell lung cancer Brother Colon cancer Paternal Grandmother Leukemia Maternal Grandmother Cervical cancer Son Testicular cancer Social History Household Members: Spouse Housing: House Are you a primary care transitions manager to a significant other at home: No Do you presently have visiting nurse or other home services: No Alcohol intake: never Patient Tobacco Use Status: Never used Tobacco e-Cigarette/Vaping Use: Never Used Second Hand Smoke Exposure: No service: Yes Current occupational status: retired Current occupational exposures/hazards: No Cognitive needs: No Hearing needs: No Vision needs: Yes (glasses) Review of Systems Const Denies weight gain and Denies weight loss ENT Reports no additional complaints, Denies dysphagia and Denies odynophagia Card Reports no additional complaints Resp Reports no additional complaints GI Denies abdominal pain, Denies belching, Denies melena, Denies bloating, Denies change in bowel habits, Denies dysphagia, Denies excessive flatus, Denies dyspepsia, Denies heartburn, Denies diarrhea, Denies loose stools, Denies nausea, Denies odynophagia and Denies vomiting Reports no additional complaints Musc Reports no additional complaints Neuro Reports no additional complaints Psych Reports no additional complaints Endo Reports no additional complaints Physical Exam Vital Signs: BMI result Body Mass Index 25.7 Const General: healthy appearing, no acute distress and well developed Nutritional Appearance: well nourished Orientation/consciousness: patient oriented x3 Resp Effort & Inspection: normal respiratory effort, able to speak in complete sentences, no tracheal deviation and symmetric chest movement Auscultation: clear to auscultation bilaterally Cardio Rate: regular rate GI Inspection: Yes normal to inspection and No distended Palpation (GI): Soft to palpation, not firm, nontender and No hepatosplenomegaly present Auscultation: normal bowel sounds General: Yes no CVA tenderness Back/Spine/Pelvis Back: no CVA tenderness Skin General skin exam: elasticity normal, turgor normal and dry skin Neuro General: patient oriented x3 Psych Appearance: grossly normal Mental Status: mental status grossly normal Assessment & Plan Assessment & Plan (1) Screening for colon cancer: Code(s): Z12.11 - Encounter for screening for malignant neoplasm of colon Category: Medical Plan Patient denies any GI, cardiac or respiratory symptoms.? Denies any issues with anesthesia in the past.? Denies any history of sleep apnea.? No history infectious diseases in the past or present.? Not on any anticoagulation therapy.? Family history of CRC. Patient's identical twin brothers diagnosed with CRC in their 60s. ? Patient denies melena, hematochezia, unintentional weight loss or ribbon like stools.? Discussed at length the pre-procedure,? prep, diet & medications as well as what to expect prior, during and after the procedure.?? Stressed the importance of good bowel prep.? Recommended the use of Vaseline or Calmoseptine OTC & baby wipes with bowel movements to promote comfort.? ?See HPI for information on patient's cell support operator. Call for clearance. Patient verbalizes understanding and agrees to plan of care.? He was given the opportunity to ask questions and all questions answered.? We will see him after the procedure.? e was given the opportunity to ask questions and all questions answered.? We will see her after the procedure.? Medications: New bisacodyl (Dulcolax (bisacodyl)) take 4 tabs at noon the day before your colonoscopy 20 mg (4 x 5 mg) PO ONCE 4 tabs 0RF constipation 1 day Z12.11 - Encounter for screening for malignant neoplasm of colon polyethylene glycol 3350 (Miralax) As directed by gastroenterology department at [facility] 238 grams PO ONCE 238 grams 0RF Z12.11 - Encounter for screening for malignant neoplasm of colon Coding Level of Care Code New Pt Level 3 (29046) Diagnoses Screening for colon cancer Z12.11 Time Spent (min) 40 Comment 30 minutes spent with patient and additional 10 minutes spent reviewing his records
--- OUTSIDE RECORDS SUMMARY | 2024-09-14 16:23 | XMS_ITS | Patient Health Record ---
Author Organization [facility] Address [address] [facility] [place] [address] Care Team Providers Care Condenser Operator Name Role Phone Carlyn DWYER, Brent Primary Care Provider Angi Cloud Unavailable [phone] Allergies Allergen (clinical drug ingredient) Drug/Non Drug Allergy documented on EMR Reaction Allergy Type Onset Date Status uncooked Dairy: Esophagus swells/breathing restricted (uncoded) Unknown Allergy Active Flu Virus Vaccine Unknown Drug Allergy Active Reason For Referral No Information Problems Problem Type SNOMED Code ICD Code Onset Dates Problem Status W/U Status Risk Notes Problem [id number] Neuropathy (G62.9) Active confirmed Problem 34567033 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 [address] [facility] [place] [id number] [phone] [id number] Andreas Lombardo Self - patient is the insured Medical (General) History Medical History History ICD Code Cataracts Diverticulosis Measles Mumps Chicken pox Expanded Aorta/Valve bicuspid/leaks Surgical History Surgery Date(Month/Year) Hernia Repair vasectomy 1983 cataract surgery 2012
== END 2024-09-14 15:23 | disposition home or self-care (01) ==
LOC: HO.HGI 13:48
PROVIDERS: PCP Family Medicine; Visit Provider Nurse Practitioner Family
DX: Z01.818 Encounter for other preprocedural examination (principal); Z12.11 Encounter for screening for malignant neoplasm of colon
CPT/HCPCS: 99024

== ENCOUNTER → 2024-09-14 13:48 | Outpatient (BNVA) | payer MEDICARE, SELFPAY | PROVIDERS: PCP Family Medicine; Visit Provider Nurse Practitioner Family | DX: Z12.11 Encounter for screening for malignant neoplasm of colon (principal) | CPT/HCPCS: 99212 ==

== ENCOUNTER 2024-12-21 08:01 | Outpatient (AMB) | payer MEDICARE, SELFPAY ==
--- NOTE | 2024-12-21 08:10 | A.OFFPC_ITS ---
Vital Signs 12/21/24 08:22 Height 5 ft 9 in Weight 171 lb 8 oz BMI 25.3 BP 140/82 H Blood Pressure Location Rt brachial Position Sitting Respiration 14 Pulse 73 Pulse Source Pulse Oximeter Temp 97.8 F Temp Source Temporal Artery Scan Pulse Oximetry (%) 97 Oxygen Delivery Method Room Air Intake Visit Reasons: f/u HLD, blood pressure Intake Note: Andreas presents in the office today to follow up on his cholesterol and blood pressure. Allergies Influenza Virus Vaccines Adverse Reaction (Severe, Verified 12/21/24 08:18) serious flu over a week Uncooked dairy products Allergy (Severe, Uncoded 12/21/24 08:18) esophagus swollen, stop breathing Tobacco use date assessed: 12/21/24 Fall risk assessment: No Falls in past year Last assessed Fall Risk: 12/21/24 Dental Screening Dental Screen Date: 12/21/24 Did you have a dental visit in the last 12 months?: No Did you have a dental problem in the last 6 months where you did not have access to dental care?: No Was dental information given to patient?: Patient declined HPI f/u HLD, blood pressure HPI Details Patient presents for follow-up hyperlipidemia and has questions about his blood pressure He saw his supervising law enforcement analyst earlier this month. He had an ultrasound to follow an aortic aneurysm. He says there was no significant change. I do not have the records yet but will request these Had changed his atorvastatin because his insurance was declining a 30 mg dose. He is taking 40 mg tablets and alternating between 20 and 40 mg daily. He is tolerating this regimen. Patient wondering what his blood pressure should be at home. He has a blood pressure monitor. Has not been checking his own blood pressures lately but plans to start. Feels well. [facility], [facility] Medical History History of cataract Surgical History History of colonoscopy History of tonsillectomy History of hernia surgery Family History Father Esophageal cancer Brother Colon cancer Small cell lung cancer Brother Colon cancer Paternal Grandmother Leukemia Maternal Grandmother Cervical cancer Son Testicular cancer Social History (Updated 12/21/24 @ 08:22 by Susan Ohara CMA) Household Members: Spouse Housing: House Are you a primary special needs caregiver to a significant other at home: No Do you presently have visiting nurse or other home services: No Alcohol intake: never Patient Tobacco Use Status: Never used Tobacco e-Cigarette/Vaping Use: Never Used Second Hand Smoke Exposure: No service: Yes Current occupational status: retired Current occupational exposures/hazards: No Cognitive needs: No Hearing needs: No Vision needs: Yes (glasses) Questionnaire Thrive Questionnaire Date Thrive assessed: 09/07/24 I am a: Parent/Caregiver What is your living situation today?: I have a steady place to live Within the past 12 months, did the food you bought not last and you didn't have the money to get more?: Never true Within the past 12 months, did you worry whether your food would run out before you got money to buy more?: Never true Do you have trouble paying for medicines?: I choose not to answer this question Do you have trouble getting transportation to medical appointments?: No Do you have trouble paying your heating and electricity bill?: I choose not to answer this question Do you have trouble taking care of your child, family member or friend?: No Do you have trouble with day-to-day activities such as bathing, preparing meals, shopping, managing finances, etc.?: No Are you currently unemployed and looking for a job?: I choose not to answer this question Are you interested in more education?: No Please select the resources that you would like help with: None Currently or been in a relationship where the following occur: No concerns reported THRIVE Score: 0 ADEN-7 AMB Questionnaire ADEN-7 Date ADEN - 7 assessed: 09/13/24 Feeling nervous, anxious, or on edge: 0 = Not at all Not being able to stop or control worryin = Not at all Worrying too much about different things: 0 = Not at all Trouble relaxin = Not at all Being so restless that it is hard to sit still: 0 = Not at all Becoming easily annoyed or irritable: 0 = Not at all Feeling afraid as if something awful might happen: 0 = Not at all Total ADEN-7 score (0-4 normal; 5-9 mild; 10-14 moderate; 15-21 severe): 0 Source: Developed by Drs. Gustavo Nieves, Ronda Bolanos, Niels Gomez and colleagues, with an educational tigre from [employer]. Review of Systems Const Denies chills, Denies fatigue, Denies fever(s), Denies headache(s) and Denies weakness ENT Denies dizziness and Denies headache(s) Card Denies dyspnea Resp Denies cough, Denies dyspnea, Denies wheezing and Denies other (shortness of breath) Musc Denies numbness and Denies tingling Neuro Denies dizziness, Denies headache(s), Denies numbness, Denies tingling and Denies weakness Psych Denies anxiety and Denies depression Endo Denies fatigue Aller/Immun Denies wheezing Physical exam (Primary Care) Vital Signs: Last Vital Signs Temp 97.8 F 12/21/24 08:22 Pulse 73 12/21/24 08:22 Resp 14 12/21/24 08:22 BP 140/82 H 12/21/24 08:22 Pulse Ox 97 12/21/24 08:22 Oxygen Delivery Method Room Air 12/21/24 08:22 BMI result Body Mass Index 25.3 Tobacco/Smoking Status: Tobacco use Status Tobacco use date assessed 12/21/24 12/21/24 08:22 Patient Tobacco Use Status Never used Tobacco 12/21/24 08:22 e-Cigarette/Vaping Use Never Used 12/21/24 08:22 Thrive Assessment: Date of Thrive Assessment Date Thrive assessed 09/07/24 12/21/24 08:12 Currently or been in a relationship where the following occur: No concerns reported Const General: well developed; No acute distress Nutritional Appearance: well nourished Orientation/consciousness: patient oriented x3 HENMT Head: Yes normocephalic and Yes atraumatic Eyes General: appearance normal, both eyes and all related structures Pupils: Equal, round and reactive pupils present EOM: EOMs intact bilaterally Resp Effort & Inspection: normal respiratory effort Neuro General: patient oriented x3 and gait normal Cranial nerves: Yes Equal, round and reactive pupils present Psych Affect: normal affect Coding Level of Care Code Est Pt Level 3 (55823) Diagnoses History of aortic aneurysm Z86.79 Carotid artery stenosis I65.29 Hypercholesterolemia E78.00 Assessment & Plan Assessment & Plan (1) History of aortic aneurysm: Code(s): Z86.79 - Personal history of other diseases of the circulatory system Category: Medical (2) Carotid artery stenosis: Code(s): I65.29 - Occlusion and stenosis of unspecified carotid artery Category: Medical (3) Hypercholesterolemia: Code(s): E78.00 - Pure hypercholesterolemia, unspecified Category: Medical Plan History of aortic aneurysm and carotid stenosis. Recent visit to his supervising law enforcement analyst and patient says he had no change in his aortic aneurysm. I will request cardiology note and ultrasound report. Is elevated but his blood pressures are typically below 130/80 Recommended blood pressure of less than 130/80. He will check at home. Patient is taking atorvastatin 40 mg tablets as 20 mg/40 mg every other day alternating. Tolerating this well. Will recheck lipids prior to his physical in April. Orders: Orders Complete Blood Count Auto Diff Today Z00.00 - Encounter for general adult medical examination without abnormal findings Prostate Specific Antigen Scr Today Z12.5 - Encounter for screening for malignant neoplasm of prostate UA CC w/rflx Micro + Cult Today Z00.00 - Encounter for general adult medical examination without abnormal findings TSH reflex Free T4 Today Z00.00 - Encounter for general adult medical examination without abnormal findings Lipid Panel Today Z00.00 - Encounter for general adult medical examination without abnormal findings Comprehensive [place]. Panel Fast Today Z00.00 - Encounter for general adult medical examination without abnormal findings Microalbumin, Random (w Creat) Today I10 - Essential (primary) hypertension
--- OUTSIDE RECORDS SUMMARY | 2024-12-21 08:13 | XMS_ITS | Patient Health Record ---
Author Organization [facility] Address [address] [place] [address] Care Team Providers Care Bindery Worker Name Role Phone Carlyn DWYER, Brent Primary Care Provider Angi Cloud Unavailable [phone] Allergies Allergen (clinical drug ingredient) Drug/Non Drug Allergy documented on EMR Reaction Allergy Type Onset Date Status uncooked Dairy: Esophagus swells/breathing restricted (uncoded) Unknown Allergy Active Flu Virus Vaccine Unknown Drug Allergy Active Reason For Referral No Information Problems Problem Type SNOMED Code ICD Code Onset Dates Problem Status W/U Status Risk Notes Problem Neuropathy (102808120) Neuropathy (G62.9) Active confirmed Problem Localized, primary osteoarthritis of the ankle and/or foot (845351450) 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 Plan Of Treatment Pending Test Test Name Order Date X ray : Foot, left 3V 07/26/2021 Insurance Providers Payer Name Payer Address Payer Phone Subscriber Number Group Number Insured Name Patient Relationship to Insured Coverage Start Date Coverage End Date [facility] [place] [address] [facility] [place] [id number] Andreas Lombardo Self - patient is the insured Medical (General) History Medical History History ICD Code Cataracts Diverticulosis Measles Mumps Chicken pox Expanded Aorta/Valve bicuspid/leaks Surgical History Surgery Date(Month/Year) Hernia Repair vasectomy 1982 cataract surgery 2012
[2024-12-21 08:22] VITALS: BP 140/82; PULSE 73; RESP 14; TEMP 36.6; O2SAT 97; BMI 25.3
== END 2024-12-21 08:45 | disposition home or self-care (01) ==
LOC: HO.HMCFM 08:02
PROVIDERS: PCP Family Medicine; Visit Provider Family Medicine
DX: Z86.79 Personal history of other diseases of the circulatory system (principal); I65.29 Occlusion and stenosis of unspecified carotid artery; E78.00 Pure hypercholesterolemia, unspecified

== ENCOUNTER → 2024-12-21 08:01 | Outpatient (BNVA) | payer MEDICARE, SELFPAY | PROVIDERS: PCP Family Medicine; Visit Provider Family Medicine | DX: I10 Essential (primary) hypertension (principal); E78.5 Hyperlipidemia, unspecified; I65.29 Occlusion and stenosis of unspecified carotid artery; E78.00 Pure hypercholesterolemia, unspecified; Z86.79 Personal history of other diseases of the circulatory system | CPT/HCPCS: 99212 ==